=== PATIENT | female | born 1970 | race Caucasian/White ===

== ENCOUNTER 2023-04-29 07:03 | Outpatient (OUT) | payer BC, SELFPAY ==
--- NOTE | 2023-04-29 10:04 | P.STRESS_ITS ---
Stress Test Stress Test Requesting physician: David Ibarra Procedure: Exercise stress test General Information: Reason for Stress Test: Chest pain Cardiac History and Risk Factors: No cardiac history, but does have lupus. Father had RI, sister has cardiomyopathy. Resting 12 - Lead Electrocardiogram: -Rhythm: Normal sinus -Rate:? 69 -[place]:?Normal -Q-waves: Non-pathologic -T-waves/ST segments: Inverted T waves in aVL Stress Test: Protocol: Royal Exercise Capacity: Excellent, exercised for 11 minutes, 45 seconds. Royal stage 4 = 4.2MPH, 16% grade, 13.4 METs Blood Pressure Response: Initial 140/84, max 168/90 Rhythm: Remained in sinus rhythm, max rate 157 = 94% max predicted. Occasional PVCs. ST - Response: No change from baseline. Patient Response: Asymptomatic Interpretation: Normal exercise stress test. Tellez Treadmill Score = 11.8 which is low risk. Clinical correlation required.
== END 2023-04-29 07:04 ==
PROVIDERS: PCP Family Medicine; Visit Provider Internal Medicine
DX: R07.89 Other chest pain (principal)
CPT/HCPCS: 93017

== ENCOUNTER 2024-07-19 10:36 | Outpatient (OUT) | payer BC, SELFPAY ==
[2024-07-19 11:18] LABS: Basophils Percent Auto 0.5 % (0.2-2.0); Eosinophils Percent Auto 0.9 % (0.9-7.0); Hematocrit 39.1 % (36.0-48.0); Hemoglobin 13.7 g/dL (12.0-16.0); Immature Granulocytes Abs Auto 0.01 10^3/uL (0.00-0.03); Immature Granulocytes Pct Auto 0.2 % (0.0-0.5); Lymphocytes Absolute Auto 1.3 10^3/uL (1.2-3.8); Lymphocytes Percent Auto 29.9 % (20.5-60.0); Mean Corpuscular Hemoglobin 29.5 pg (26.7-34.0); Mean Corpuscular Volume 84.1 fL (81.0-99.0); Monocytes Absolute Auto 0.4 10^3/uL (0.3-0.8); Monocytes Percent Auto 10.4 % (1.7-12.0); Neutrophils Absolute Auto 2.5 10^3/uL (1.4-6.5); Neutrophils Percent Auto 58.1 % (43.0-75.0); Platelet Count 222 10^3/uL (150-450); Red Blood Count 4.65 10^6/uL (4.20-5.40); White Blood Count 4.3 10^3/uL (4.0-11.0)
[2024-07-19 11:39] LABS: Estimated Average Glucose 97 mg/dL
[2024-07-19 11:54] LABS: Alanine Aminotransferase 29 U/L (14-59); Albumin Globulin Ratio 1.1; Albumin Level 4.1 g/dL (3.4-5.0); Alkaline Phosphatase 84 U/L (46-116); Aspartate Amino Transferase 18 U/L (15-37); BUN Creatinine Ratio 15.4; Bilirubin Total 0.5 mg/dL (0.2-1.0); Calcium 9.3 mg/dL (8.5-10.1); Carbon Dioxide 30.9 mmol/L (21.0-32.0); Chloride 100 mmol/L (98-107); Chol HDL Ratio 2.7; Cholesterol 193 mg/dL (<=200); Estimated GFR (African America >60 (>=60); Estimated GFR (Non-African Ame >60 (>=60); Free T3 2.64 pg/mL (2.18-3.98); Globulin 3.9 g/dL; Glucose 105 mg/dL (74-106); HDL Cholesterol 72 mg/dL (40-60); Potassium 3.9 mmol/L (3.5-5.1); Sodium 135 mmol/L (136-145); Thyroid Stimulating Hormone 0.554 uIU/mL (0.358-3.740); Triglycerides 54 mg/dL (<=150); VLDL CHOLESTEROL 10.8 mg/dL
== END 2024-07-19 10:37 | disposition home or self-care (01) ==
PROVIDERS: PCP Family Medicine; Visit Provider Family Medicine
DX: R00.0 Tachycardia, unspecified (principal); R25.1 Tremor, unspecified
CPT/HCPCS: 36415; 80053; 80061; 83036; 83540; 84436; 84443; 84481; 85025; 93246

== ENCOUNTER 2024-07-26 13:01 | Outpatient (OUT) | payer BC, SELFPAY ==
--- NOTE | 2024-07-26 13:00 | ECG_ITS ---
[facility] Test Date: 2024-07-26 Pat Name: Nneka Jade Department: Room: - Gender: Female [employer]er: : 1970 Requested By: KAVIN WAGNER Order Number: [id number] Reading MD: GEORGETTE MORALES Measurements Intervals [place] Rate: 76 P: 60 IA: 149 QRS: 85 QRSD: 85 T: 63 QT: 372 QTc: 419 Interpretive Statements SINUS RHYTHM Compared to ECG 07/06/2019 05:17:38 No significant changes Electronically Signed On 07-27-2024 22:29:35 EDT by GEORGETTE MORALES
[2024-07-26 18:37] LABS: Internal Control Within Normal Limits; Occult Blood Positive
== END 2024-07-26 13:02 | disposition home or self-care (01) ==
LOC: CARD 13:01
PROVIDERS: PCP Family Medicine; Visit Provider Family Medicine
DX: R00.0 Tachycardia, unspecified (principal)
CPT/HCPCS: 93005; G0328

== ENCOUNTER 2024-08-24 10:09 | Outpatient (OUT) | payer BC, SELFPAY ==
--- NOTE | 2024-08-24 10:12 | CA_ITS ---
Patient Name: TYREE ARRIAGA MR#: [id number] : 1970 Exam Date: 08/24/2024 Ordering Doctor: DR KAVIN WAGNER . ECHOCARDIOGRAM REPORT PROCEDURE: CA ECHO DOPPLER COMPLETE INDICATIONS: Tachycardia COMPARISON: None. DESCRIPTION: COMPLETE ECHOCARDIOGRAM Real-time transthoracic echocardiography with 2D, M-mode, spectral and color flow Doppler performed. QUALITY: Technical quality was good. LEFT VENTRICLE: Normal chamber size. Normal left ventricular wall thickness. Global left ventricular systolic function is normal. Visual estimation of left ventricular ejection fraction is 65%. No regional wall motion abnormalities LV EF: DIASTOLIC: Normal diastolic function. ATRIAL SEPTUM: LEFT ATRIUM: Normal chamber size. RIGHT ATRIUM: Normal chamber size. RIGHT VENTRICLE: Normal chamber size. Normal right ventricular systolic function. TRICUSPID VALVE: Normal mobility and thickness. Normal with trivial regurgitation. No evidence of pulmonary hypertension.RVSP 23mmHg MITRAL VALVE: Normal mobility and thickness. No evidence of mitral valve stenosis. There is no mitral annular calcification. No pericardial effusion mitral regurgitation. AORTIC VALVE: Normal trileaflet appearance. No visible sclerosis. Normal leaflet mobility. No evidence of aortic valve stenosis. No aortic regurgitation. AORTIC ROOT: Normal diameter and appearance. PULMONIC VALVE: Normal thickness and mobility. No stenosis. Trivial regurgitation. PERICARDIUM: No pericardial effusion. IVC: Collapes with inspirations. Normal size PLEURA: CONCLUSION: Normal left and systolic function without wall motion abnormalities, ejection fraction 65% Normal left ventricular diastolic function Normal right ventricle size and systolic function Normal pulmonary arterial pressure Trivial tricuspid regurgitation and trivial pulmonic regurgitation No significant valvular abnormalities Adult Echocardiography Procedure Report Left Ventricle LVEDD (3.7 - 5.6 cm): 4.66 cm LVESD (2.2 - 4.0 cm): 2.96 cm LVIVS thickness (0.6 - 1.2 cm): 0.64 cm LVPW thickness (0.5 - 1.0 cm): 0.97 cm e': 0.11 m/s E - e': 6.94 LVOT Max Gradient: 4.58 mm[Hg] LVOT Area (cm2): 1.07 m/s Peak Velocity (LVOT): 1.07 m/s Mean Velocity (LVOT): 0.69 m/s LVOT Diameter 1.91 cm Left Ventricular Ejection Fraction: 70.22 % Left Atrium LA Volume Index (2D A2C): 29.86 ml/m2 Left Atrium Systolic Dimension: 3.23 cm Mitral Valve MV E to A Ratio: 1.13 MV Max Gradient: MV Mean Gradient: Mitral Valve A-Wave Peak Velocity: 0.70 m/s Mitral Valve E-Wave Peak Velocity: 0.79 m/s Cardiovascular Orifice Area: Right Ventricle RV Internal Diastolic Dimension: 2.99 cm Aorta AO Root Diam: 2.55 cm Ascending Ao Diam: 2.43 cm Aortic Valve AoV Area ([place]): 2.00 cm2, 2.00 cm2 AoV Area (VTI): 1.96 cm2, 1.[address] [place]: Pressure Half-Time: Peak Velocity(Antegrade Flow): 1.53 m/s Peak Gradient(Antegrade Flow): 9.37 mm[Hg] Mean Velocity(Antegrade Flow): 1.06 m/s Mean Gradient(Antegrade Flow): 5.14 mm[Hg] Velocity Time Integral: 31.77 cm Tricuspid Valve Peak Velocity (Regurgitant Flow): 2.04 m/s, 2.22 m/s, 2.42 m/s Peak Velocity: Pulmonic Valve Mean Gradient: 4.72 mm[Hg], 3.93 mm[Hg] Mean Velocity: 0.98 m/s, 0.90 m/s Peak Velocity: 1.46 m/s Peak Gradient: 9.30 mm[Hg], 7.89 mm[Hg] Right Atrium Right Atrium Systolic Pressure: 32.70 ml, 32.70 ml Dictated by: Faustina Mayorga MD on 08/24/2024 at 16:30 Approved by: Faustina Mayorga MD on 08/24/2024 at 16:39
--- OUTSIDE RECORDS SUMMARY | 2024-08-24 10:15 | XMS_ITS | CCD ---
Author Organization [facility] Inform ion Partnership [facility] Care Team Providers Care Senior Human Resources Representative Name Role Phone Kavin Ibarra Primary Care Provider CHELSEY ALEXITA Referring Unavailable KAVIN IBARRA Primary Care Unavailable KAVIN IBARRA Referring Unavailable KAVIN IBARRA Primary Care Unavailable CHELSEY ALEXITA Referring Unavailable KAVIN IBARRA Primary Care Unavailable CHELSEY ALEXITA Referring Unavailable KAVIN IBARRA Primary Care Unavailable Unavailable Primary Care Provider Unavailabl e JORDAN RICHARDSON Admitting Unavailable JORDAN RICHARDSON Consulting Unavailable JORDAN RICHARDSON Attending Unavailable DR KAVIN IBARRA Primary Care Unavailable CINTHIA JOAQUIN Consulting Unavailable Ramirez Levi Consulting Unavailable MD Kavin Ibarra Primary Care Provider [phone] DO Cuong Ireland Emergency Provider Kodi Hughes Attending Unavailable Cuong Ireland Admitting Unavailable Cuong Ireland Attending Unavailable Kavin Ibarra Primary Care Unavailable Medications Current Medications Medication Drug Class(es) Dates Sig (Normalized) Sig (Original) benzonatate 200 mg oral capsule (1 source) Non-narcotic Antitussive Start: 10-09-2022 take 200 mg by mouth three times daily Benzonatate Active 200 MG PO Three times daily October 09, 2022 12:00am oseltamivir 75 mg oral capsule (1 source) Neuraminidase Inhibitor Start: 10-09-2022 take 1 capsule by mouth every twelve hours Oseltamivir (Tamiflu) 75 mg capsule Active 75 MG PO Q12H 10 October 09, 2022 12:00am Problems Active Problems Problem Classification Problem Date Documented Da te Episodic/Chronic Influenza (1 source) Influenza due to Influenza A virus; Translations: [Influenza due to other identified influenza virus with other respiratory manifestations] 11-30-2022 Episodic Influenza (1 source) Influenza; Translations: [Influenza due to other identified influenza virus with other manifestations] Onset: 10-09-2022 Other aftercare (1 source) Other superintendent terminal (current) drug therapy; Translations: [OTH SKILLED NURSING CURRENT DRUG THERAPY] Onset: 10-08-2021 Episodic Other gastrointestinal disorders (1 source) Constipation, unspecified; Translations: [CONSTIPATION UNSPECIFIED] Onset: 10-08-2021 Episodic Other gastrointestinal disorders (1 source) Constipation; Translations: [Constipation, unspecified] 10-12-2021 Episodic Unclassified (3 sources) LOW BACK PAIN, UNSPECIFIED; Translations: [LOW BACK PAIN, UNSPECIFIED] Onset: 10-08-2021 Unclassified (1 source) Cough, unspecified; Translations: [Cough, unspecified] Onset: 10-09-2022 Past or Other Problems Problem Classification Problem Date Documented Da te Episodic/Chronic Unclassified (1 source) LOW BACK PAIN, UNSPECIFIED; Translations: [LOW BACK PAIN, UNSPECIFIED] Onset: 10-05-2021 Results Test Name Value Interpretation Reference Range Facility ED Note-Physicianon 07-20-20 24 ED Note-Physician ED Note-Physician Basic Information Time Seen: Orlando DUFF, Wiliam Alicea. 07/19/2024 18:38 Chief Complaint Pt presents to ED with complaints of right calf pain onset days ago and worsening today History of Present Illness 54yo female presents with a 4day hx of R. lower leg pain. The pt states the pain started Friday and has been worsening today. She states the pain is ascending and stops midway up the tibia. Pt states that she has been running around all weekend because of her son's wedding at their house. Pt states she was at her PCP today to get evaluated for dizziness, headaches and dyspnea on exertion. Her PCP gave her a Holter monitor to evaluate potential causes. She states that she does not remember any trauma to the location. Pt states when she is moving it is a stabbing pain but if she is laying still it is more of a throbbing. She states that she tried ibuprofen and Tylenol with no relief of pain. Pt denies ecchymosis and edema. Pt states she had cold sx 1 week ago which have resolved. Pt denies hx of blood clots and recent procedures. Review of Systems No other aggravating or relieving factors no other associated symptoms no other prior treatments or complaints. Family: Reviewed and noncontributory Social: lives at home Review of systems negative unless otherwise specified in the HPI. Physical Exam Vitals & Measurements T: 36.9 ?C(Oral) HR: 104(Peripheral) RR: 18 BP: 144/90 SpO2: 98% HT: 157 cm WT: 58 kg BMI: 23.53 General: alert Skin: warm, dry Head: no trauma Neck: Trachea midline Eye: normal conjunctiva, sclera clear ENMT: TM's clear, oral mucosa moist Cardiovascular: regular rate and rhythm Respiratory: Lungs CTA, respirations non labored Chest wall: no deformity. Gastrointestinal: soft, non distended Back: No tenderness, Normal ROM Extremities: no deformity, no trauma, TTP to medial/lateral aspect of the right tibia, distal pulses present Neurological: LOC appropriate for age, speech normal Psychiatric: cooperative, affect appropriate for age, normal judgement Medical Decision Making MEDICAL DECISION MAKING Number and Complexity of Problems Differential Diagnosis: [] [facility] Data External documents reviewed: [] My EKG interpretation: [] My CT interpretation: [] My X-ray interpretation: [] My Ultrasound interpretation: reviewed Decision rules/scores evaluated: [] Discussed with: [] Treatment and Disposition ED Course: 54-year-old female reports emerged part with chief complaint of pain in her right lower leg. Possibly primary care doctor for concerns of possible blood clot. Exam is relatively benign. Mild tenderness along the right leg along the medial lateral aspect. Due to your concerns, we did do an ultrasound. Ultrasound negative for any signs of DVT. Discussed likely more muscular strain. She was understanding. Continue to rest, ice, compress, and elevate your affected joint to relieve inflammation and swelling. You may also take ibuprofen and Tylenol to help with pain. Follow-up with your primary care provider in 3 to 5 days. If symptoms worsen, do not improve, or new symptoms arise please report back to emergency department for further evaluation. The patient was understanding and agreeable to plan moving forward. Wiliam Rock PA-C had a [id number] interaction with the patient. I personally performed a physical exam and medical decision making. I have verified the documentation by the student as accurately representing the information obtained. Shared decision making: [] Code status: [] Assessment/Plan Pain in right lower leg (M79.661: Pain in right lower leg) Orders: naproxen, 500 mg = 1 tab(s), Oral, BID, PRN Pain, with food, # 20 tab(s), Refills(s) 0, Pharmacy: [facility]/pharm[facility] #[id number], 157, cm, 07/19/24 17:31:00 EDT, Height/Length Dosing, 58, kg, 07/19/24 17:31:00 EDT, Weight Dosing US Lower Extremity Venous Duplex Right Disposition Plan Patient Discharge Condition Stable Discharge Disposition to home Discharge Prescription List Prescriptions naproxen 500 mg Tab, 500 mg= 1 tab(s), Oral, BID, PRN Follow-up With When Contact Information Kavin Ibarra In 3 days 07/22/[address]T [address] Business (1) Additional Instructions: Call Dr for diagnosis based follow up Patient Education RICE Therapy for Routine Care of Injuries, [id number] Musculoskeletal Pain Attestation Patient seen and evaluated by the physician executive assistant. Attending physician was present in the emergency department and supervised care. This visit was performed by both the physician and an APC. I performed all aspects of the MDM as documented. This report was transcribed using voice recognition software. Every effort was made to ensure accuracy, however, inadvertently computerized web support engineer mistakes may be present. Appropriate healthcare PPE was used in evaluating this patient. The patient was p (more content not included)... Normal [facility] Comment on above: Result Comment: Elec tronically Signed By: Kodi Hughes DO\.br\Date and Time Signed: 07/20/24 07:04 EDT\.br\Electronically Co-Signed By: Wiliam Perry PA-C.br\Date and Time Co-Signed: 07/19/24 21:43 EDT US Lower Extremity Venous Du plex Righton 07-20-2024 US Lower Extremity Venous Duplex Right Exam Date/Time: 07/19/2024 19:54 EDT Reason for Exam: Pain Report IMPRESSION: NO EVIDENCE OF VENOUS THROMBOSIS INVOLVING VISUALIZED DEEP VEINS OF THE RIGHT LEG. CLINICAL HISTORY: Pain COMMENT: On the right, the greater saphenous vein, common femoral vein, deep femoral vein, femoral vein, and popliteal vein demonstrate spontaneous phasic venous flow, with augmentation, competence, non-pulsatility, and compressibility every 2 cm. The right posterior tibial and peroneal veins of the deep venous system compress. The contralateral left common femoral vein demonstrates spontaneous phasic venous flow. Ordering Provider: Wiliam Perry FINAL REPORT Dictated: 07/20/2024 8:29 am Jefferson Cage MD Signed (Electronic Signature): 07/20/2024 8:29 am Signed by: Jefferson Cage MD Transcribed by: MICKIE Technologist: MAY Morgan [facility] ED Clinical Summaryon 2023 ED Clinical Summary ED Clinical Summary [place] [id number] ED Clinical Summary Person Information Name: NNEKA ARRIAGA [facility] Age: 54 Years : 1970 Sex: Female Language: Bulgarian PCP: Kavin Ibarra MD Marital Status: Phone: [phone] Visit Id: Visit Reason: Lower leg pain-swelling; RIGHT LEG PAIN Speciality: Acuity: 4 Enc Type: Emergency Med Service: Emergency Arrival: 07/19/2024 17:26:05 Discharge: 07/19/2024 20:06:19 LOS: 000 02:40 Checkin: 07/19/2024 17:26:05 Checkout: 07/19/2024 20:06:19 Dispo Type: Home (Routine DC) EVENTS: Event Name Event Status Request Date/Time Start Date/Time Complete Date/Time Arrive Complete 07/19/2024 17:26:05 07/19/2024 17:26:05 07/19/2024 17:26:05 Document Home Meds Request 07/19/2024 17:26:05 Triage Complete 07/19/2024 17:26:05 07/19/2024 17:31:55 07/19/2024 17:31:55 Registration Complete 07/19/2024 17:29:19 07/19/2024 17:29:19 07/19/2024 17:29:19 Reg Complete Request 07/19/2024 17:29:19 Reg Bed Request Complete 07/19/2024 17:29:19 07/19/2024 17:29:19 07/19/2024 17:29:19 Bed Assign Complete 07/19/2024 18:33:03 07/19/2024 18:33:03 07/19/2024 18:33:03 Dr Exam Complete 07/19/2024 18:33:03 07/19/2024 18:36:05 07/19/2024 18:36:05 RN Exam Complete 07/19/2024 18:33:03 07/19/2024 18:57:51 07/19/2024 18:57:51 Registration Request 07/19/2024 18:36:05 Dr Exam Complete 07/19/2024 18:38:52 07/19/2024 18:38:52 07/19/2024 18:38:52 Dr Exam Complete 07/19/2024 18:39:18 07/19/2024 18:39:18 07/19/2024 18:39:18 Dr Exam Complete 07/19/2024 18:41:45 07/19/2024 18:41:45 07/19/2024 18:41:45 US Complete 07/19/2024 19:02:53 07/19/2024 19:33:14 07/19/2024 19:54:33 Discharge Complete 07/19/2024 20:01:50 07/19/2024 20:06:26 07/19/2024 20:06:26 Transfer Complete 07/19/2024 20:06:26 07/19/2024 20:06:26 07/19/2024 20:06:26 ADDRESS: [address] [facility] [id number] [facility] DOC NOTES: MEDICAL INFORMATION: Prescriptions Given: New Medications [id number], [address], [place] [id number], [phone] naproxen (naproxen 500 mg Tab) 1 Tablets By Mouth 2 times a day as needed Pain. with food. Refills: 0. Medications to Continue with No Changes Other Medications ascorbic acid (Vitamin C) every day. ergocalciferol (Vitamin D) By Mouth every week. PATIENT EDUCATION INFORMATION: Instructions: RICE Therapy for Routine Care of Injuries, [id number]; Musculoskeletal Pain Follow up: With: Address: When: Kavin Ibarra [address] [place] [address] [phone] [place] (1) In 3 days 07/22/2024 Comments: Call Dr for diagnosis based follow up DIAGNOSIS: Pain in right lower leg Normal [facility] ED Patient Summaryon 024 ED Patient Summary ED Patient Summary [address] [address] Patient Discharge Instructions Person Information Name: NNEKA ARRIAGA Age: 54 Years Arrival Date: 07/19/2024 17:26:05 Discharge Diagnosis: Pain in right lower leg Primary Care Physician: Kavin Ibarra MD Provider Information Primary Provider: Kodi Hughes DO Advanced Oil Field Operator:None The exam and treatment you received in the Emergency Department were for an urgent problem and are not intended as complete care. It is important that you follow up with a doctor, nurse practitioner, or physician?s executive assistant for ongoing care. If your symptoms become worse or you do not improve as expected and you are unable to reach your usual health care provider, you should return to the Emergency Department. We are available 24 hours a day. NNEKA ARRIAGA has been given the following list of patient education materials, prescriptions and follow-up instructions: Follow-up Instructions: With: Address: When: Kavin Ibarra [address] [place] [address] [phone] [place] (1) In 3 days 07/22/2024 Comments: Call Dr for diagnosis based follow up In the event that this physician does not participate in your insurance network, please consult with your insurance company to find a nearby participating provider. Patient Education Materials: RICE Therapy for Routine Care of Injuries, Qhug-as-Dmci; Musculoskeletal Pain A MESSAGE TO ALL PATIENTS REGARDING OPIOIDS PRESCRIPTION OPIOIDS: WHAT YOU NEED TO KNOW Prescription opioids can be used to help relieve wmzgttlf-mj-flhzit pain and are often prescribed following a surgery or injury, or for certain health conditions. These medications can be an important part of the treatment but also come with serious risks. It is important to work with your healthcare provider to make sure you are getting the safest, most effective care. WHAT ARE THE RISKS AND SIDE EFFECTS OF OPIOID USE? Prescription opioids carry serious risks of addiction and overdose, especially with prolonged use. An opioid overdose, often marked by slowed breathing, can cause sudden . The use of prescription opioids can have a number of side effects as well, even when taken as directed: ? Tolerance?meaning you might need to take more of the medication for the same pain relief ? Physical dependence?meaning you have symptoms of withdrawal when a medication is stopped ? Increased sensitivity to pain ? Constipation ? Nausea, vomiting, and dry mouth ? Sleepiness and dizziness ? Confusion ? Depression ? Low levels of testosterone that can result in lower sex drive, energy, and strength ? Itching and sweating RISKS ARE GREATER WITH: ? History of drug misuse, substance use disorder, or overdose ? Mental health conditions (such as depression or anxiety) ? Sleep apnea ? Older age (65 years and older) ? Avoid alcohol while taking prescription opioids. Also, unless specifically advised by your health care provider, medications to avoid include: ? Benzodiazepines (such as Xanax or Valium) ? Muscle relaxants (such as Soma or Flexeril) ? Hypnotics (such as Ambien or Lunesta) ? Other prescription opioids KNOW YOUR OPTIONS Talk to your health care provider about ways to manage your pain that don?t involve prescription opioids. Some of these options may actually work better and have fewer risks and side effects. Options may include: ? Pain relievers such as acetaminophen, ibuprofen, and naproxen ? Some medication that are also used for depression or seizures ? Physical therapy and exercise ? Cognitive behavioral therapy, a psychological, goal-directed approach, in which patients learn how to modify physical, behavioral, and emotional triggers of pain and stress. IF YOU ARE PRESCRIBED OPIOIDS FOR PAIN: ? Never take opioids in greater amounts or more often than prescribed. ? Follow up with your primary health care provider. o Work together to create a plan on how to manage your pain. o Talk about ways to help manage your pain that don?t involve prescription opioids. o Talk about any and all concerns and side effects. ? Help prevent misuse and abuse o Never sell or share prescription opioids. o Never use another person?s prescription opioids. ? Store prescription opioids in a secure place and out of reach of others (this may include visitors, children, friends, and family). ? Safely dispose of unused prescription opioids: Find your community drug take-back program or your pharmacy mail-back program, or flush them down the toilet, following guidance from the Food and Drug Administration (www.fda.gov/Drugs/Re sourcesForYou). ? Visit www.cdc.gov/drugoverd ose to learn about the risks of opioids abuse and overdose. ? If you believe you may be struggling with addiction, tell your hea (more content not included)... Normal [facility] Automated epithelial cells c ount in urine sediment (number/area)Ordered By: Cuong Ireland on 10-09-2022 Epithelial cells Auto (Urine sed) [#/Area] 3-4 [HPF] 0-2 [facility] Automated erythrocytes count in urine sediment (number/area)Ordered By: Cuong Ireland on 10-09-2022 RBC Auto (Urine sed) [#/Area] None seen [HPF] 0-4 [facility] Automated leukocytes count i n urine sediment (number/area)Ordered By: Cuong Ireland on 10-09-2022 WBC Auto (Urine sed) [#/Area] None seen [HPF] 0-4 [facility] Automated urine hyaline cast s count (number/volume)Ordered By: Cuong Ireland on 10-09-2022 Hyaline casts Auto (U) [#/Vol] None seen [LPF] 0-1 [facility] Basophils Auto (Bld) [#/Vol] Ordered By: Cuong Ireland on 10-09-2022 Basophils (Bld) [#/Vol] 0.1 10*3/uL 0.0-0.2 [facility] Basophils/100 WBC Auto (Bld) Ordered By: Cuong Ireland on 10-09-2022 Basophils/100 WBC (Bld) 0.4 % . [facility] Bilirubin Test strip Ql (U)O rdered By: Cuong Ireland on 10-09-2022 Bilirubin Ql (U) Negative Negative [facility] Body fluid albumin measureme nt (mass/volume)Ordered By: Cuong Ireland on 10-09-2022 Albumin (Body fld) [Mass/Vol] 4.0 g/dL 3.2-5.5 [facility] COVID CepheidOrdered By: Pratik spring Shu on 10-09-2022 SARS-CoV-2 (COVID-19) Ab IA Ql Negative Negative [facility] Comment on above: This is a duplicate Cepheid Xpert Xpress CoV-2/Flu/RSV Plus RNA by RT-PCR result to be used for statistical tracking purpose only. SARS-CoV-2 (COVID-19) RNA GEORGIANA+probe Ql (Unsp spec) [facility] Color Auto (U)Ordered By: Jacky lucianamarleni Ireland on 10-09-2022 Color (U) Yellow Yellow [facility] Creatinine and Glomerular fi ltration rate.predicted panel (S/P/Bld)Ordered By: Cuong Ireland on 10-09-2022 Creatinine [Mass/Vol] 0.88 mg/dL 0.44-1.03 [facility] Eosinophils Auto (Bld) [#/Vo l]Ordered By: Cuong Ireland on 10-09-2022 Eosinophils (Bld) [#/Vol] 0.0 10*3/uL 0.0-0.45 [facility] Eosinophils/100 WBC Auto (Bl d)Ordered By: Cuong Ireland on 10-09-2022 Eosinophils/100 WBC (Bld) 0.0 % . [facility] Erythrocyte distribution wid th Auto (RBC) [Ratio]Ordered By: Cuong Ireland on 10-09-2022 Erythrocyte distribution width (RBC) [Ratio] 12.6 % 11.9-15.3 [facility] Estimated glomerular filtrat ion rate (GFR) non- AmericanOrdered By: Cuong Ireland on 10-09-2022 GFR/1.73 sq M.predicted among non-blacks MDRD (S/P/Bld) [Vol rate/Area] > 60 mL/Min [facility] Globulin Calc (S) [Mass/Vol] Ordered By: Cuong Ireland on 10-09-2022 Globulin (S) [Mass/Vol] 3.6 g/dL [facility] HCG ( test) IA.rapi d Ql (U)Ordered By: Cuong Ireland on 10-09-2022 HCG ( test) Ql (U) Negative [facility] Hematocrit Auto (Bld) [Volum e fraction]Ordered By: Cuong Ireland on 10-09-2022 Hematocrit (Bld) [Volume fraction] 38.7 % 34.0-46.4 [facility] Hemoglobin [Mass/volume] in BloodOrdered By: Cuong Ireland on 10-09-2022 Hemoglobin (Bld) [Mass/Vol] 13.3 g/dL 11.8-15.4 [facility] Ketones Auto test strip (U) [Mass/Vol]Ordered By: Cuong Ireland on 10-09-2022 Ketones (U) [Mass/Vol] Negative Negative [facility] Leukocytes [#/volume] correc regan for nucleated erythrocytes in Blood by Automated counOrdered By: Cuong Ireland on 10-09-2022 WBC corrected for nucl RBC Auto (Bld) [#/Vol] 11.7 10*3/uL 3.8-11.6 [facility] Lymphocytes Auto (Bld) [#/Vo l]Ordered By: Cuong Ireland on 10-09-2022 Lymphocytes (Bld) [#/Vol] 0.8 10*3/uL 1.00-4.8 [facility] Lymphocytes/100 WBC Auto (Bl d)Ordered By: Cuong Ireland on 10-09-2022 Lymphocytes/100 WBC (Bld) 7.0 % . [facility] MCH Auto (RBC) [Entitic mass ]Ordered By: Cuong Ireland on 10-09-2022 MCH (RBC) [Entitic mass] 28.7 pg 24.7-34.3 [facility] MCHC Auto (RBC) [Mass/Vol]Or dered By: Cuong Ireland on 10-09-2022 MCHC (RBC) [Mass/Vol] 34.3 g/dL 32.0-35.0 [facility] MCV Auto (RBC) [Entitic vol] Ordered By: Cuong Ireland on 10-09-2022 MCV (RBC) [Entitic vol] 83.7 fL 80-100 [facility] Monocyte distribution width [Entitic volume] in Blood by AutomatedOrdered By: Cuong Ireland on 10-09-2022 Monocyte distribution width Auto (Bld) [Entitic vol] 23.80 % 0.00-20.00 [facility] Comment on above: For adults in ED, MD W > 20.0 may be associated with a higher risk of sepsis during the first 12 hrs of hospital admission Monocytes Auto (Bld) [#/Vol] Ordered By: Cuong Ireland on 10-09-2022 Monocytes (Bld) [#/Vol] 1.5 10*3/uL 0.0-0.8 [facility] Monocytes/100 WBC Auto (Bld) Ordered By: Cuong Ireland on 10-09-2022 Monocytes/100 WBC (Bld) 13.0 % . [facility] Neutrophils Auto (Bld) [#/Vo l]Ordered By: Cuong Ireland on 10-09-2022 Neutrophils (Bld) [#/Vol] 9.3 10*3/uL 1.8-7.7 [facility] Neutrophils/100 WBC Auto (Bl d)Ordered By: Cuong Ireland on 10-09-2022 Neutrophils/100 WBC (Bld) 79.6 % . [facility] Nitrite Test strip Ql (U)Ord ered By: Cuong Ireland on 10-09-2022 Nitrite Ql (U) Negative Negative [facility] No Panel InformationOrdered By: Cuong Ireland on 10-09-2022 D-Dimer Quantitative (PE/DVT) < 200 ng/mL 0-243 [facility] Comment on above: The reference range for D-dimer is <243 ng/mL D-dimer units.D-dimer results must be used in conjunction with a clinicalpretest probability (PTP) assessment model for deep veinthrombosis (DVT) and pulmonary embolism (PE). Results <230ng/mL d-dimer units can be used as a negative predictor inpatients with low or moderate probability for DVT/PE.Results above the exclusion threshold of 230 ng/ml D-dimerunits for DVT/PE may indicate the need for furtherdiagnostic testing.D-Dimer can be increased in hospitalized patients due toco-morbid conditions. Estimated GFR () > 60 mL/Min [facility] Comment on above: GFR estimated refere nce range: According to KDOQI guidelines, <60 ml/min/1.73m2 is sufficient to diagnose a patient with chronic kidney disease. Pharmacy Creatinine Clearance (Chem 63.20 [facility] Nucleated erythrocytes [Pres ence] in Blood by Automated countOrdered By: Cuong Ireland on 10-09-2022 Nucleated RBC Auto Ql (Bld) 0.1 /100{WBC} 0-0.5 [facility] Platelet mean volume Auto (B ld) [Entitic vol]Ordered By: Cuong Ireland on 10-09-2022 Platelet mean volume (Bld) [Entitic vol] 7.6 fL 6.3-10.7 [facility] Platelets Auto (Bld) [#/Vol] Ordered By: Cuong Ireland on 10-09-2022 Platelets (Bld) [#/Vol] 178 10*3/uL 150-450 [facility] Protein Auto test strip (U) [Mass/Vol]Ordered By: Cuong Ireland on 10-09-2022 Protein (U) [Mass/Vol] Negative Negative [facility] Protein [Mass/volume] in Ser um or PlasmaOrdered By: Cuong Ireland on 10-09-2022 Protein [Mass/Vol] 7.6 g/dL 6.1-7.9 [facility] RBC Auto (Bld) [#/Vol]Ordere d By: Cuong Ireland on 10-09-2022 RBC (Bld) [#/Vol] 4.63 10*6/uL 3.60-5.00 [facility] Serum or plasma alanine oshea otransferase measurement without P-5'-P (enzymatic activiOrdered By: Cuong Ireland on 10-09-2022 ALT No additional P-5'-P [Catalytic activity/Vol] 18 U/L 10-60 [facility] Serum or plasma albumin/glob ulin mass ratioOrdered By: Cuong Ireland on 10-09-2022 Albumin/Globulin [Mass ratio] 1.1 {ratio} [facility] Serum or plasma alkaline emily sphatase measurement (enzymatic activity/volume)Ordered By: Cuong Ireland on 10-09-2022 ALP [Catalytic activity/Vol] 67 U/L 32-92 [facility] Serum or plasma anion gap de terminationOrdered By: Cuong Ireland on 10-09-2022 Anion gap [Moles/Vol] 11.3 mmol/L 6.0-15.0 [facility] Serum or plasma aspartate am inotransferase measurement (enzymatic activity/volume)Ordered By: Cuong Ireland on 10-09-2022 AST [Catalytic activity/Vol] 24 U/L 10-42 [facility] Serum or plasma calcium sneha urement (mass/volume)Ordered By: Cuong Ireland on 10-09-2022 Calcium [Mass/Vol] 9.0 mg/dL 8.2-10.2 [facility] Serum or plasma chloride chin surement (moles/volume)Ordered By: Cuong Ireland on 10-09-2022 Chloride [Moles/Vol] 95 mmol/L 95-114 [facility] Serum or plasma glucose sneha urement (mass/volume)Ordered By: Cuong Ireland on 10-09-2022 Glucose [Mass/Vol] 129 mg/dL 70-100 [facility] Comment on above: ADA recommended refe rence rangeRandom Glucose Reference Range is dependent on time and content of last meal. Glucose of more than 200 mg/dL in a nonstressed, ambulatory subject supports the diagnosis of Diabetes Mellitus. Serum or plasma potassium me asurement (moles/volume)Ordered By: Cuong Ireland on 10-09-2022 Potassium [Moles/Vol] 3.4 mmol/L 3.5-5.1 [facility] Serum or plasma sodium measu rement (moles/volume)Ordered By: Cuong Ireland on 10-09-2022 Sodium [Moles/Vol] 132 mmol/L 136-146 [facility] Serum or plasma total biliru bin measurement (mass/volume)Ordered By: Cuong Ireland on 10-09-2022 Bilirubin [Mass/Vol] 0.7 mg/dL 0.3-1.2 [facility] Serum or plasma total carbon dioxide measurement (moles/volume)Ordered By: Cuong Ireland on 10-09-2022 CO2 [Moles/Vol] 29.1 mmol/L 22.0-30.0 [facility] Serum or plasma urea nitroge n measurement (mass/volume)Ordered By: Cuong Ireland on 10-09-2022 Urea nitrogen [Mass/Vol] 10 mg/dL 08-02 [facility] Specific gravity Auto test s trip (U) [Rel density]Ordered By: Cuong Ireland on 10-09-2022 Specific gravity (U) [Rel density] 1.003 1.001-1.030 [facility] Urine bacteria detection by automated methodOrdered By: Cuong Ireland on 10-09-2022 Bacteria Auto Ql (U) 4+ None Seen [facility] Urine clarity by refractomet ry automatedOrdered By: Cuong Ireland on 10-09-2022 Clarity Refractometry automated (U) Clear Clear [facility] Urine glucose measurement by automated test strip (mass/volume)Ordered By: Cuong Ireland on 10-09-2022 Glucose Auto test strip (U) [Mass/Vol] Normal mg/dL Normal [facility] Urine hemoglobin detection b y automated test stripOrdered By: Cuong Ireland on 10-09-2022 Hemoglobin Auto test strip Ql (U) Negative Negative [facility] Urine leukocyte esterase det ection by automated test stripOrdered By: Cuong Ireland on 10-09-2022 Leukocyte esterase Auto test strip Ql (U) 2+ Negative [facility] Urobilinogen Auto test strip (U) [Mass/Vol]Ordered By: Cuong Ireland on 10-09-2022 Urobilinogen (U) [Mass/Vol] Normal mg/dL Normal [facility] WBC Auto (Bld) [#/Vol]Ordere d By: Cuong Ireland on 10-09-2022 WBC (Bld) [#/Vol] 11.7 10*3/uL 3.8-11.6 [facility] pH Auto test strip (U)Ordere d By: Cuong Ireland on 10-09-2022 pH (U) 6.0 [pH] 5.0-9.[address] [facility] CT ABD/PELV W CONon 10-06-20 CT ABD/PELV W CON EXAMINATION: CT ABD/PELV W CON HISTORY: Right lower quadrant abdominal pain, low back pain COMPARISON: Pelvic x-ray 09/26/2020, CT abdomen pelvis 07/29/2019 TECHNIQUE: Multiple axial views CT abdomen pelvis after administration of 100 mL Omnipaque 300 IV contrast. Coronal and sagittal reformats. Dose reduction techniques were achieved by using automated exposure control and/or adjustment of mA and/or kV according to patient size and/or use of iterative reconstruction technique. FINDINGS: Visualized lung bases demonstrate mild bibasilar atelectasis. Cardiac apex unremarkable. Liver, gallbladder, spleen, pancreas, adrenal glands, and kidneys are unremarkable. Mild bilateral pelviectasis and mild fluid filled distention of the bilateral proximal ureters but without radiopaque stones. These findings are similar to CT 07/29/2019. Fluid filled urinary bladder without discrete wall thickening or radiopaque stones. Heterogeneous uterus. Prior appendix tip surgery but remaining appendiceal remnant is without wall thickening or surrounding fluid. Large amount stool throughout the large bowel to the rectum. No evidence for small bowel obstruction, large ascites, or free air. No acute bony abnormality. No vertebral body height loss, acute fracture line, or traumatic subluxation. No focal osseous erosion. No severe bony canal narrowing. IMPRESSION: Prior appendix tip surgery but remaining appendiceal remnant is without wall thickening or surrounding fluid. Mild bilateral pelviectasis and mild fluid filled distention of the bilateral proximal ureters but without radiopaque stones. These findings are similar to CT 07/29/2019. Electronically authenticated by: RAMIREZ LEVI Date: 2021-10-05 23:45 Normal [facility] XR LSPINE 2_3 VIEWSon 2020 XR LSPINE 2_3 VIEWS EXAMINATION: XR LSPINE 2_3 VIEWS, , 10/05/2021 9:22 PM EST INDICATION: Pain HISTORY: Ordering Provider Reason for Exam: Technologist Note: Additional: COMPARISON: None. TECHNIQUE: Lumbar spine x-ray: 3 view(s). FINDINGS: No acute fracture or traumatic malalignment. Normal lumbar lordosis. No listhesis. No abnormal curvature. Vertebral body heights are normal. Disc heights are maintained. Visualized soft tissues are unremarkable. Large bilateral stool is seen throughout the colon. IMPRESSION: No acute fracture or traumatic malalignment. Large volume of stool seen throughout the colon. Electronically authenticated by: CINTHIA JOAQUIN Date: 2021-10-05 22:56 Normal [facility] CBC AUTO DIFFon 10-05-2021 BASO # 0.0 103/ul Normal 0.0-0.1 [facility] Comment on above: Performed By: #### C BC #### [facility] [address] [place] [address] Dr. Mathew Ariza Basophils/100 WBC (Bld) 0.2 % Normal 0.2-2.0 [facility] Comment on above: Performed By: #### C BC #### [facility] [address] [place] [address] Dr. Mathew Ariza EO # 0.1 103/ul Normal 0.0-0.7 [facility] Comment on above: Performed By: #### C BC #### [facility] [address] [place] [address] Dr. Mathew Ariza Eosinophils/100 WBC (Bld) 0.9 % Normal 0.9-7.0 [facility] Comment on above: Performed By: #### C BC #### [facility] [address] [place] [address] Dr. Mathew Ariza Erythrocyte distribution width (RBC) [Ratio] 11.5 % Normal 11.0-15.0 [facility] Comment on above: Performed By: #### C BC #### [facility] [address] [place] [address] Dr. Mathew Ariza Hematocrit (Bld) [Volume fraction] 40.0 % Normal 36.0-48.0 [facility] Comment on above: Performed By: #### C BC #### [facility] [address] [place] [address] Dr. Mathew Ariza Hemoglobin (Bld) [Mass/Vol] 13.8 g/dL Normal 12.0-16.0 [facility] Comment on above: Performed By: #### C BC #### [facility] [address] [place] [address] Dr. Mathew Ariza IG # 0.02 10e3/ul Normal 0.00-0.03 [facility] Comment on above: Performed By: #### C BC #### [facility] [address] [place] [address] Dr. Mathew Ariza IG % 0.3 % Normal 0.0-0.5 [facility] Comment on above: Performed By: #### C BC #### [facility] [address] [place] [address] Dr. Mathew Ariza LYMPH # 1.3 103/ul Normal 1.2-3.8 [facility] Comment on above: Performed By: #### C BC #### [facility] [address] [place] [address] Dr. Mathew Ariza Lymphocytes/100 WBC (Bld) 22.8 % Normal 20.5-60.0 [facility] Comment on above: Performed By: #### C BC #### [facility] [address] [place] [address] Dr. Mathew Ariza MANUAL DIFF REQ NO Normal [facility] Comment on above: Performed By: #### C BC #### [facility] [address] [place] [address] Dr. Mathew Ariza MCH (RBC) [Entitic mass] 29.4 pg Normal 26.7-34.0 [facility] Comment on above: Performed By: #### C BC #### [facility] [address] [place] [address] Dr. Mathew Ariza MCHC (RBC) [Mass/Vol] 34.5 g/dL Normal 29.9-35.2 [facility] Comment on above: Performed By: #### C BC #### [facility] [address] [place] [address] Dr. Mathew Ariza MCV (RBC) [Entitic vol] 85.3 fL Normal 81.0-99.0 [facility] Comment on above: Performed By: #### C BC #### [facility] [address] [place] [address] Dr. Mathew Ariza MONO # 0.7 103/ul Normal 0.3-0.8 [facility] Comment on above: Performed By: #### C BC #### [facility] [address] [place] [address] Dr. Mathew Ariza Monocytes/100 WBC (Bld) 12.2 % Critically high 1.7-12. 0 [facility] Comment on above: Performed By: #### C BC #### [facility] [address] [place] [address] Dr. Mathew Ariza NEUT # 3.7 103/ul Normal 1.4-6.5 [facility] Comment on above: Performed By: #### C BC #### [facility] [address] [place] [address] Dr. Mathew Ariza Neutrophils/100 WBC (Bld) 63.6 % Normal 43.0-75.0 [facility] Comment on above: Performed By: #### C BC #### [facility] [address] [place] [address] Dr. Mathew Ariza Platelet mean volume (Bld) [Entitic vol] 9.4 fL Critically low 9.5-13.5 [facility] Comment on above: Performed By: #### C BC #### [facility] [address] [place] [address] Dr. Mathew Ariza PLT 212 103/ul Normal 150-450 [facility] Comment on above: Performed By: #### C BC #### [facility] [address] [place] [address] Dr. Mathew Ariza RBC 4.69 106/ul Normal 4.20-5.40 [facility] Comment on above: Performed By: #### C BC #### [facility] [address] [place] [address] Dr. Mathew Ariza WBC 5.8 103/ul Normal 4.0-11.0 [facility] Comment on above: Performed By: #### C BC #### [facility] [address] [place] [address] Dr. Mathew Ariza ER URINE PROFILEon 1 Bilirubin Ql (U) Negative Normal NEGATIVE [facility] Comment on above: Performed By: #### E RUR #### [facility] [address] [place] [address] Dr. Mathew Ariza Clarity (U) CLEAR Normal CLEAR [facility] Comment on above: Performed By: #### E RUR #### [facility] [address] [place] [address] Dr. Mathew Ariza Color (U) LT. YELLOW Normal YELLOW [facility] Comment on above: Performed By: #### E RUR #### [facility] [address] [place] [address] Dr. Mathew VAZQUEZ A micrscopic examination will be performed if indicated. Normal [facility] Comment on above: Performed By: #### E RUR #### [facility] [address] [place] [address] Dr. Mathew Ariza Glucose Ql (U) Negative Normal NEGATIVE [facility] Comment on above: Performed By: #### E RUR #### [facility] [address] [place] [address] Dr. Mathew Ariza Hemoglobin Ql (U) Negative Normal NEGATIVE [facility] Comment on above: Performed By: #### E RUR #### [facility] [address] [place] [address] Dr. Mathew Ariza Ketones Ql (U) Negative Normal NEGATIVE [facility] Comment on above: Performed By: #### E RUR #### [facility] [address] [place] [address] Dr. Mathew Ariza LEUKOCYTES Negative Normal NEGATIVE [facility] Comment on above: Performed By: #### E RUR #### [facility] [address] [place] [address] Dr. Mathew Ariza Nitrite Ql (U) Negative Normal NEGATIVE [facility] Comment on above: Performed By: #### E RUR #### [facility] [address] [place] [address] Dr. Mathew Ariza pH (U) 7.0 [pH] Normal 5-9 [facility] Comment on above: Performed By: #### E RUR #### [facility] [address] [place] [address] Dr. Matehw Ariza SPEC GRAVITY 1.025 Normal 1.005-<=1.02 5 [facility] Comment on above: Performed By: #### E RUR #### [facility] [address] [place] [address] Dr. Mathew Ariza UA PROTEIN Negative Normal NEGATIVE/ TRACE [facility] Comment on above: Performed By: #### E RUR #### [facility] [address] [place] [address] Dr. Mathew Ariza UR MICRO IND NOT INDICATED Normal [facility] Comment on above: Performed By: #### E RUR #### [facility] [address] [place] [address] Dr. Mathew Ariza Urobilinogen Qn (U) 0.2 {Josie'U}/dL Normal 0.2 - 1. 0 [facility] Comment on above: Performed By: #### E RUR #### [facility] [address] [place] [address] Dr. Mathew Ariza PROF CHEM 8 (BAS METB)on Anion gap [Moles/Vol] 11.5 mmol/L Normal [facility] Comment on above: Performed By: #### B MP #### [facility] [address] [place] [address] Dr. aMthew Ariza Calcium [Mass/Vol] 9.1 mg/dL Normal 8.4-10.2 [facility] Comment on above: Performed By: #### B MP #### [facility] [address] [place] [address] Dr. Mathew Ariza Chloride [Moles/Vol] 101 mmol/L Normal 98-107 [facility] Comment on above: Performed By: #### B MP #### [facility] [address] [place] [address] Dr. Mathew Ariza CO2 [Moles/Vol] 30.2 mmol/L Critically high 22.0-30.0 [facility] Comment on above: Performed By: #### B MP #### [facility] [address] [place] [address] Dr. Mathew Ariza Creatinine [Mass/Vol] 0.96 mg/dL Normal 0.52-1.04 [facility] Comment on above: Performed By: #### B MP #### [facility] [address] [address] [address] Mathew Ariza EGFR-AF MARSHALLESE >60 Normal >=60 [facility] Comment on above: Performed By: #### B MP #### [facility] [address] [address] [address] Mathew Ariza EGFR-NON AF MARSHALLESE >60 Normal >=60 [facility] Comment on above: Performed By: #### B MP #### [facility] [address] [address] [address] Mathew Ariza Glucose [Mass/Vol] 103 mg/dL Normal 74-106 [facility] Comment on above: Performed By: #### B MP #### [facility] [address] [address] [address] Mathew Ariza Potassium [Moles/Vol] 3.7 mmol/L Normal 3.4-5.0 [facility] Comment on above: Performed By: #### B MP #### [facility] [address] [address] [address] Mathew Ariza Sodium [Moles/Vol] 139 mmol/L Normal 137-145 [facility] Comment on above: Performed By: #### B MP #### [facility] [address] [address] [address] Mathew Ariza Urea nitrogen [Mass/Vol] 20.0 mg/dL Critically high 7.0-17 .0 [facility] Comment on above: Performed By: #### B MP #### [facility] [address] [address] [address] Mathew Ariza Urea nitrogen/Creatinine [Mass ratio] 20.8 mg/mg Normal [facility] Comment on above: Performed By: #### B MP #### [facility] [address] [address] [address] Mathew Ariza Basic Metabolic Panelon 07-12 Anion gap [Moles/Vol] 11 mmol/L 9 - 17 mmol/L [place] Bun/Cre Ratio 34 High [place] Calcium [Mass/Vol] 10.1 mg/dL 8.6 - 10. 4 mg/dL [place] Chloride [Moles/Vol] 100 mmol/L 98 - 10 7 mmol/L [place] CO2 [Moles/Vol] 26 mmol/L 20 - 31 mmol/L [place] Creatinine [Mass/Vol] 0.5 mg/dL 0.5 - 0.9 mg/dL [place] GFR >60 >60 mL/min [place] GFR Non- >60 >60 mL/min [place] GFR/1.73 sq M predicted among non-blacks MDRD (S/P/Bld) [Vol rate/Area] NOT REPORTED [place] GFR/1.73 sq M predicted among non-blacks MDRD (S/P/Bld) [Vol rate/Area] [place] Comment on above: Average GFR for 50-5 9 years old: 93 mL/min/1.73sq m Chronic Kidney Disease: <60 mL/min/1.73sq m Kidney failure: <15 mL/min/1.73sq m eGFR calculated using average adult body mass. Additional eGFR calculator available at: http://www.[employer]am[employer]/multiple_crcl_2012.htm Glucose [Mass/Vol] 121 mg/dL High 70 - 99 mg/dL [place] Interpretation and review of laboratory results Abnormal [place] Potassium [Moles/Vol] 3.8 mmol/L 3.7 - 5.3 mmol/L [place] Sodium [Moles/Vol] 137 mmol/L 135 - 144 mmol/L [place] Urea nitrogen [Mass/Vol] 17 mg/dL 6 - 20 mg/d L [place] Basic Metabolic Profon 08-02 (cont.) Normal [facility] Comment on above: Result Comment: Aver age GFR for 50-59 years old: 93 mL/min/1.73sq m Chronic Kidney Disease: <60 mL/min/1.73sq m Kidney failure: <15 mL/min/1.73sq m eGFR calculated using average adult body mass. Additional eGFR calculator available at: http://www.globalrph.com/multiple_crcl_2012.htm Performed By: #### C DP, BMP, SED #### [facility] [address] [place], [place] [phone] Typing Bookkeeper: Jerry Willingham MD #### CRP #### [address] [phone] Typing Bookkeeper: Fabrice Barrett MD Anion gap [Moles/Vol] 11 mmol/L Normal 9-17 [facility] Comment on above: Performed By: #### C DP, BMP, SED #### [facility] [address] [place], [place] [phone] Typing Bookkeeper: Jerry Willingham MD #### CRP #### [address] [phone] Typing Bookkeeper: Fabrice Barrett MD BUN/CRE Ratio 34 High 9-20 [facility] Comment on above: Performed By: #### C DP, BMP, SED #### [facility] [address] [place], [place] [phone] Typing Bookkeeper: Jerry Willingham MD #### CRP #### [address] [address] Typing Bookkeeper: Fabrice Barrett MD Calcium [Mass/Vol] 10.1 mg/dL Normal 8.6-10.4 [facility] Comment on above: Performed By: #### C DP, BMP, SED #### [facility] [address] [place], [place] [phone] Typing Bookkeeper: Jerry Willingham MD #### CRP #### [address] [address] Typing Bookkeeper: Fabrice Barrett MD Chloride [Moles/Vol] 100 mmol/L Normal 98-107 [facility] Comment on above: Performed By: #### C DP, BMP, SED #### [facility] [address] [place] [address] Typing Bookkeeper: Jerry Willingham MD #### CRP #### [address] [phone] Typing Bookkeeper: Fabrice Barrett MD CO2 [Moles/Vol] 26 mmol/L Normal 20-31 [facility] Comment on above: Performed By: #### C DP, BMP, SED #### [facility] [address] [place], [place] [phone] Typing Bookkeeper: Jerry Willingham MD #### CRP #### [address] [phone] Typing Bookkeeper: Fabrice Barrett MD Creatinine [Mass/Vol] 0.50 mg/dL Normal 0.50-0.90 [facility] Comment on above: Performed By: #### C DP, BMP, SED #### [facility] [address] [place] [address] Typing Bookkeeper: Jerry Willingham MD #### CRP #### [address] [phone] Typing Bookkeeper: Fabrice Barrett MD GFR, Amer >60 Normal >60 [facility] Comment on above: Performed By: #### C DP, BMP, SED #### [facility] [address] [place] [address] Typing Bookkeeper: Jerry Willingham MD #### CRP #### [address] [address] Typing Bookkeeper: Fabrice Barrett MD GFR,non Amer >60 Normal >60 [facility] Comment on above: Performed By: #### C DP, BMP, SED #### [facility] [address] [place] [address] Typing Bookkeeper: Jerry Willingham MD #### CRP #### [address] [address] Typing Bookkeeper: Fabrice Barrett MD Glucose [Mass/Vol] 121 mg/dL High 70-99 [facility] Comment on above: Performed By: #### C DP, BMP, SED #### [facility] [address] [place] [address] Typing Bookkeeper: Jerry Willingham MD #### CRP #### [address] [address] Typing Bookkeeper: Fabrice Barrett MD Potassium [Moles/Vol] 3.8 mmol/L Normal 3.7-5.3 [facility] Comment on above: Performed By: #### C DP, BMP, SED #### [facility] [address] [place], [place] [phone] Typing Bookkeeper: Jerry Willingham MD #### CRP #### [address] [address] Typing Bookkeeper: Fbarice Barrett MD Sodium [Moles/Vol] 137 mmol/L Normal 135-144 [facility] Comment on above: Performed By: #### C DP, BMP, SED #### [facility] [address] [place] [address] Typing Bookkeeper: Jerry Willingham MD #### CRP #### [address] [address] Typing Bookkeeper: Fabrice Barrett MD Urea nitrogen [Mass/Vol] 17 mg/dL Normal 6-20 [facility] Comment on above: Performed By: #### C DP, BMP, SED #### [facility] [address] [place] [address] Typing Bookkeeper: Jerry Willingham MD #### CRP #### [address] [address] Typing Bookkeeper: Fabrice Barrett MD Staging: NOT REPORTED Normal [facility] Comment on above: Performed By: #### C DP, BMP, SED #### [facility] [address] [place] [address] Typing Bookkeeper: Jerry Willingham MD #### CRP #### [facility] [address] [place], [place] [phone] Typing Bookkeeper: Fabrice Barrett MD C-Reactive Proteinon 019 CRP [Mass/Vol] 0.6 mg/L Normal 0.0-5.0 [facility] Comment on above: Performed By: #### C DP, BMP, SED #### [facility] [address] [place] [address] Typing Bookkeeper: Jerry Willingham MD #### CRP #### [facility] [address] [place], [place] [phone] Typing Bookkeeper: Fabrice Barrett MD CRP [Mass/Vol] 0.6 mg/L 0 - 5 mg/L [place] CBC Auto Differentialon 07-12 Basophils (Bld) [#/Vol] 0.00 10*3/uL [place] Basophils/100 WBC (Bld) 1 % 0 - 2 % M [place] Differential Type YES [place] Eosinophils (Bld) [#/Vol] 0.20 10*3/uL [place] Eosinophils/100 WBC (Bld) 4 % 0 - 5 % [place] Erythrocyte distribution width (RBC) [Ratio] 12.9 % 12.1 - 15.2 % [place] Hematocrit (Bld) [Volume fraction] 37.5 % 36 - 46 % [place] Hemoglobin (Bld) [Mass/Vol] 12.9 g/dL 12 - 16 g/dL [place] Interpretation and review of laboratory results Abnormal [place] Lymphocytes (Bld) [#/Vol] 0.80 10*3/uL Low [place] Lymphocytes/100 WBC (Bld) 17 % 15 - 40 % [place] MCH (RBC) [Entitic mass] 29.5 pg 26 - 34 pg [place] MCHC (RBC) [Mass/Vol] 34.3 g/dL 31 - 37 g/dL M [place] MCV (RBC) [Entitic vol] 85.9 fL 80 - 100 fL [place] Monocytes (Bld) [#/Vol] 0.70 10*3/uL [place] Monocytes/100 WBC (Bld) 14 % High 4 - 8 % M [place] Platelet mean volume (Bld) [Entitic vol] NOT REPORTED 6 - 12 fL [place] Platelets (Bld) [#/Vol] NOT REPORTED [place] Platelets (Bld) [#/Vol] 187 10*3/uL [place] RBC (Bld) [#/Vol] 4.36 10*6/uL 4 - 5.2 m/uL [place] RBC morphology finding Nom (Bld) NOT REPORTED [place] Segmented neutrophils/100 WBC (Bld) 64 % 47 - 75 % [place] Segs Absolute 3.30 [place] WBC (Bld) [#/Vol] 5.1 10*3/uL [place] WBC (Bld) [#/Vol] NOT REPORTED per 100 WBC [place] WBC Morphology NOT REPORTED [place] CBC with Diffon 08-02-2019 Abs. Basophil 0.00 k/uL Normal 0.0-0.2 [facility] Comment on above: Performed By: #### C DP, BMP, SED #### [facility] [address] [place] [address] Typing Bookkeeper: Jerry Willingham MD #### CRP #### [facility] [employer] [address] [place] [address] Typing Bookkeeper: Fabrice Barrett MD Abs.Neutrophil (Seg) 3.30 k/uL Normal 2.5-7.0 [facility] Comment on above: Performed By: #### C DP, BMP, SED #### [facility] [address] [place], [place] [phone] Typing Bookkeeper: Jerry Willingham MD #### CRP #### [address] [phone] Typing Bookkeeper: Fabrice Barrett MD Auto Diff Performed YES Normal [facility] Comment on above: Performed By: #### C DP, BMP, SED #### [facility] [address] [place], [place] [phone] Typing Bookkeeper: Jerry Willingham MD #### CRP #### [address] [phone] Typing Bookkeeper: Fabrice Barrett MD Basophils/100 WBC (Bld) 1 % Normal 0-2 [facility] Comment on above: Performed By: #### C DP, BMP, SED #### [facility] [address] [place] [address] Typing Bookkeeper: Jerry Willingham MD #### CRP #### [address] [phone] Typing Bookkeeper: Fabrice Barrett MD Eosinophils (Bld) [#/Vol] 0.20 10*3/uL Normal 0.0-0.4 [facility] Comment on above: Performed By: #### C DP, BMP, SED #### [facility] [address] [place] [address] Typing Bookkeeper: Jerry Willingham MD #### CRP #### [address] [phone] Typing Bookkeeper: Fabrice Barrett MD Eosinophils/100 WBC (Bld) 4 % Normal 0-5 [facility] Comment on above: Performed By: #### C DP, BMP, SED #### [facility] [address] [place] [address] (710) Typing Bookkeeper: Jerry Willingham MD #### CRP #### [address] [address] Typing Bookkeeper: Fabrice Barrett MD Erythrocyte distribution width (RBC) [Ratio] 12.9 % Normal 12.1-15.2 [facility] Comment on above: Performed By: #### C DP, BMP, SED #### [facility] [address] [place] [address] ( Typing Bookkeeper: Jerry Willingham MD #### CRP #### [place] [phone] Typing Bookkeeper: Fabrice Barrett MD Hematocrit (Bld) [Volume fraction] 37.5 % Normal 36-46 [facility] Comment on above: Performed By: #### C DP, BMP, SED #### [facility] [address] [place] [phone] ( Typing Bookkeeper: Jerry Willingham MD #### CRP #### [place] [phone] Typing Bookkeeper: Fabrice Barrett MD Hemoglobin (Bld) [Mass/Vol] 12.9 g/dL Normal 12.0-16.0 [facility] Comment on above: Performed By: #### C DP, BMP, SED #### [facility] [address] [place] [address] ( Typing Bookkeeper: Jerry Willingham MD #### CRP #### [place] [phone] Typing Bookkeeper: Fabrice Barrett MD Lymphocytes (Bld) [#/Vol] 0.80 10*3/uL Low 1.0-4.8 [facility] Comment on above: Performed By: #### C DP, BMP, SED #### [facility] [address] [place] [phone] ( Typing Bookkeeper: Jerry Willingham MD #### CRP #### [address] [phone] Typing Bookkeeper: Fabrice Barrett MD Lymphocytes/100 WBC (Bld) 17 % Normal 15-40 [facility] Comment on above: Performed By: #### C DP, BMP, SED #### [facility] [address] [place] [address] Typing Bookkeeper: Jerry Willingham MD #### CRP #### [address] [phone] Typing Bookkeeper: Fabrice Barrett MD MCH (RBC) [Entitic mass] 29.5 pg Normal 26-34 [facility] Comment on above: Performed By: #### C DP, BMP, SED #### [facility] [address] [place] [address] Typing Bookkeeper: Jerry Willingham MD #### CRP #### [address] [phone] Typing Bookkeeper: Fabrice Barrett MD MCHC (RBC) [Mass/Vol] 34.3 g/dL Normal 31-37 [facility] Comment on above: Performed By: #### C DP, BMP, SED #### [facility] [address] [place] [phone] Typing Bookkeeper: Jerry Willingham MD #### CRP #### [address] [phone] Typing Bookkeeper: Fabrice Barrett MD MCV (RBC) [Entitic vol] 85.9 fL Normal 80-100 M [facility] Comment on above: Performed By: #### C DP, BMP, SED #### [facility] [address] [place], [place] [phone] Typing Bookkeeper: Jerry Willingham MD #### CRP #### [address] [phone] Typing Bookkeeper: Fabrice Barrett MD Monocytes (Bld) [#/Vol] 0.70 10*3/uL Normal 0.0-1.0 [facility] Comment on above: Performed By: #### C DP, BMP, SED #### [facility] [address] [place], [place] [phone] Typing Bookkeeper: Jerry Willingham MD #### CRP #### [address] [address] Typing Bookkeeper: Fabrice Barrett MD Monocytes/100 WBC (Bld) 14 % High 4-8 M [facility] Comment on above: Performed By: #### C DP, BMP, SED #### [facility] [address] [place] [address] Typing Bookkeeper: Jerry Willingham MD #### CRP #### [address] [address] Typing Bookkeeper: Fabrice Barrett MD Neutrophil (Seg) 64 % Normal 47-75 [facility] Comment on above: Performed By: #### C DP, BMP, SED #### [facility] [address] [place], [place] [phone] Typing Bookkeeper: Jerry Willingham MD #### CRP #### [address] [address] Typing Bookkeeper: Fabrice Barrett MD Platelets (Bld) [#/Vol] 187 10*3/uL Normal 140-450 [facility] Comment on above: Performed By: #### C DP, BMP, SED #### [facility] [address] [place] [address] Typing Bookkeeper: Jerry Willingham MD #### CRP #### [address] [address] Typing Bookkeeper: Fabrice Barrett MD RBC (Bld) [#/Vol] 4.36 10*6/uL Normal 4.0-5.2 [facility] Comment on above: Performed By: #### C DP, BMP, SED #### [facility] [address] [place] [address] Typing Bookkeeper: Jerry Willingham MD #### CRP #### [address] [address] Typing Bookkeeper: Fabrice Barrett MD WBC (Bld) [#/Vol] 5.1 10*3/uL Normal 3.5-11.0 [facility] Comment on above: Performed By: #### C DP, BMP, SED #### [facility] [address] [place] [address] Typing Bookkeeper: Jerry Willingham MD #### CRP #### [place] [address] Typing Bookkeeper: Fabrice Barrett MD Abs.Imm.Granulocyte NOT REPORTED Normal 0.00-0.30 [facility] Comment on above: Performed By: #### C DP, BMP, SED #### [facility] [address] [place] [address] Typing Bookkeeper: Jerry Willingham MD #### CRP #### [address] [address] Typing Bookkeeper: Fabrice Barrett MD Immature granulocytes (Bld) [#/Vol] NOT REPORTED Normal 0 [facility] Comment on above: Performed By: #### C DP, BMP, SED #### [facility] [address] [place] [address] Typing Bookkeeper: Jerry Willingham MD #### CRP #### [address] [address] Typing Bookkeeper: Fabrice Barrett MD NRBC Automated NOT REPORTED Normal [facility] Comment on above: Performed By: #### C DP, BMP, SED #### [facility] [address] [place], [place] [phone] Typing Bookkeeper: Jerry Willingham MD #### CRP #### [address] [address] Typing Bookkeeper: Fabrcie Barrett MD Platelet mean volume (Bld) [Entitic vol] NOT REPORTED Normal 6.0-12.0 [facility] Comment on above: Performed By: #### C DP, BMP, SED #### [facility] [address] [place], [place] [phone] Typing Bookkeeper: Jerry Willingham MD #### CRP #### [address] [phone] Typing Bookkeeper: Fabrice Barrett MD Platelets (Bld) [#/Vol] NOT REPORTED Normal [facility] Comment on above: Performed By: #### C DP, BMP, SED #### [facility] [address] [place], [place] [phone] Typing Bookkeeper: Jerry Willingham MD #### CRP #### [address] [address] Typing Bookkeeper: Fabrice Barrett MD RBC morphology finding Nom (Bld) NOT REPORTED Normal [facility] Comment on above: Performed By: #### C DP, BMP, SED #### [facility] [address] [place] [address] Typing Bookkeeper: Jerry Willingham MD #### CRP #### [address] [address] Typing Bookkeeper: Fabrice Barrett MD WBC Morphology NOT REPORTED Normal [facility] Comment on above: Performed By: #### C DP, BMP, SED #### [facility] [address] [place], [place] [phone] Typing Bookkeeper: Jerry Willingham MD #### CRP #### [facility] [employer] [address] [place] [address] Typing Bookkeeper: Fabrice Barrett MD Otheron 08-02-2019 Immature granulocytes (Bld) [#/Vol] NOT REPORTED 0 % [place] Sedimentation Rateon 019 Sedimentation Rate 20 mm Normal 0-30 [facility] Comment on above: Performed By: #### C DP, BMP, SED #### [facility] [address] [place] [address] Typing Bookkeeper: Jerry Willingham MD #### CRP #### [facility] [employer] [address] [place] [address] Typing Bookkeeper: Fabrice Barrett MD Sed Rate 20 mm 0 - 30 mm [place] PROGRESSon 07-31-2019 PROGRESS HNO ID: [id number] Author: Sunita Spivey Service: ? Author Type: Physician Type: Progress Notes Filed: 07/31/2019 12:54 PM Note Text: Here for f/u w CT from 07/29 Feels great and back to normal Denies any pain, no fevers and no change in bowel habits and good appetite and energy level Blood pressure 146/71, pulse 86, temperature 36.9 ?C (98.5 ?F), temperature source Oral, resp. rate 18, SpO2 97 %. WAD abd is soft, Nt and ND Small palpable resolving subcutaneous hematoma at RUQ port site A/p: CT reviewed and interval decrease in size of intra-abd abscess and now <2cm ID recommended 1 more week of IV abx Evid for subcutaneous port site hematoma in the R UQ port site and pt has no pain and reassured Repeat CT in 1 mo if complete resolution of abscess no further intervention needed Anticipate cont improvement All of her questions answered and concerns addressed Pt appreciative of the care Sunita Spivey MD Normal [facility] CNOVon 07-30-2019 CNOV Office Visit ([id number] ) CORINANNEKA VELASCO ([id number]) 1970 F Date Time Provider Department 07/30/19 10:15 AM SUNITA SPIVEY [id number] During your visit today, we recorded the following information about you: Temperature Pulse Respiration Blood pressure 98.5 degrees 86/minute 18/minute 146/71 Sunita Spivey MD 07/31/2019 12:54 PM Signed Here for f/u w CT from 07/29 Feels great and back to normal Denies any pain, no fevers and no change in bowel habits and good appetite and energy level Blood pressure 146/71, pulse 86, temperature 36.9 ?C (98.5 ?F), temperature source Oral, resp. rate 18, SpO2 97 %. WAD abd is soft, Nt and ND Small palpable resolving subcutaneous hematoma at RUQ port site A/p: CT reviewed and interval decrease in size of intra-abd abscess and now <2cm ID recommended 1 more week of IV abx Evid for subcutaneous port site hematoma in the R UQ port site and pt has no pain and reassured Repeat CT in 1 mo if complete resolution of abscess no further intervention needed Anticipate cont improvement All of her questions answered and concerns addressed Pt appreciative of the care Sunita Spivey MD Referring Provider: KAVIN IBARRA [[id number]] Allergies As of Date: 07/30/2019 (No Known Allergies) Date Reviewed: 07/30/2019 Reviewed by: Tavia Tijerina Ma - Fully Assessed Reason for Visit: Established Patient [175] Primary Visit Diagnosis:Postprocedu ral intraabdominal abscess [T81.49XA] Prescriptions as of 07/30/2019 Sig: LACTOBACILLUS ACIDOPHILUS CAP* Take 2 capsules by mouth once* AMITRIPTYLINE 10 MG TABLET Take one tablet one hour befo* Problem List As Of Date 07/30/2019 Noted Resolved Postprocedural intraabdominal abscess [T81.49XA]INVALID FOR* Encounter Status:Closed by SUNITA SPIVEY MD on 07/31/19 Normal [facility] OT-CT ABD/PELVIS W CON IMPOR Ton 07-29-2019 OT-CT ABD/PELVIS W CON IMPORT Images were obtained outside of [facility] [id number] N Normal [facility] Basic Metabolic Panelon 07-11 Anion gap [Moles/Vol] 14 mmol/L 9 - 17 mmol/L [place] Bun/Cre Ratio 26 High [place] Calcium [Mass/Vol] 9.8 mg/dL 8.6 - 10. 4 mg/dL [place] Chloride [Moles/Vol] 103 mmol/L 98 - 10 7 mmol/L [place] [employer] CO2 [Moles/Vol] 25 mmol/L 20 - 31 mmol/L [place] [employer] Creatinine [Mass/Vol] 0.62 mg/dL 0.5 - 0.9 mg/dL [place] GFR >60 >60 mL/min [place] GFR Non- >60 >60 mL/min [place] [employer] Glucose [Mass/Vol] 98 mg/dL 70 - 99 mg/dL [place] Interpretation and review of laboratory results Abnormal [place] Potassium [Moles/Vol] 3.9 mmol/L 3.7 - 5.3 mmol/L [place] [employer] Sodium [Moles/Vol] 142 mmol/L 135 - 144 mmol/L [place] [employer] Urea nitrogen [Mass/Vol] 16 mg/dL 6 - 20 mg/d L [place] [employer] Basic Metabolic Profon 07-26 (cont.) Normal [facility] Comment on above: Result Comment: Aver age GFR for 50-59 years old: 93 mL/min/1.73sq m Chronic Kidney Disease: <60 mL/min/1.73sq m Kidney failure: <15 mL/min/1.73sq m eGFR calculated using average adult body mass. Additional eGFR calculator available at: http://[email or web address].Pebble/multiple_crcl_2012.htm Performed By: #### B MP, SED, CRP, CDP #### [facility] [address] [place] [address] Typing Bookkeeper: Jerry Willingham MD Anion gap [Moles/Vol] 14 mmol/L Normal 9-17 [facility] Comment on above: Performed By: #### B MP, SED, CRP, CDP #### [facility] [address] [place], [place] [phone] Typing Bookkeeper: Jerry Willingham MD BUN/CRE Ratio 26 High 9-20 [facility] Comment on above: Performed By: #### B MP, SED, CRP, CDP #### [facility] [address] [place], [place] [phone] Typing Bookkeeper: Jerry Willingham MD Calcium [Mass/Vol] 9.8 mg/dL Normal 8.6-10.4 [facility] Comment on above: Performed By: #### B MP, SED, CRP, CDP #### [facility] [address] [place], [place] [phone] Typing Bookkeeper: Jerry Willingham MD Chloride [Moles/Vol] 103 mmol/L Normal 98-107 [facility] Comment on above: Performed By: #### B MP, SED, CRP, CDP #### [facility] [address] [place], [place] [phone] Typing Bookkeeper: Jerry Willingham MD CO2 [Moles/Vol] 25 mmol/L Normal 20-31 [facility] Comment on above: Performed By: #### B MP, SED, CRP, CDP #### [facility] [address] [place], [place] [phone] Typing Bookkeeper: Jerry Willingham MD Creatinine [Mass/Vol] 0.62 mg/dL Normal 0.50-0.90 [facility] Comment on above: Performed By: #### B MP, SED, CRP, CDP #### [facility] [address] [place], [place] [phone] Typing Bookkeeper: Jerry Willingham MD GFR, Amer >60 Normal >60 [facility] Comment on above: Performed By: #### B MP, SED, CRP, CDP #### [facility] [address] [place], [place] [phone] Typing Bookkeeper: Jerry Willingham MD GFR,non Amer >60 Normal >60 [facility] Comment on above: Performed By: #### B MP, SED, CRP, CDP #### [facility] [address] [place], [place] [phone] Typing Bookkeeper: Jerry Willingham MD Glucose [Mass/Vol] 98 mg/dL Normal 70-99 [facility] Comment on above: Performed By: #### B MP, SED, CRP, CDP #### [facility] [address] [place], [place] [phone] Typing Bookkeeper: Jerry Willingham MD Potassium [Moles/Vol] 3.9 mmol/L Normal 3.7-5.3 [facility] Comment on above: Performed By: #### B MP, SED, CRP, CDP #### [address] [place] [address] Typing Bookkeeper: Jerry Willingham MD Sodium [Moles/Vol] 142 mmol/L Normal 135-144 [facility] Comment on above: Performed By: #### B MP, SED, CRP, CDP #### [facility] [address] [place], [place] [phone] Typing Bookkeeper: Jerry Willinhgam MD Staging: Normal [facility] Comment on above: Result Comment: Stag e 1: Some kidney damage normal GFR Stage 2: Mild kidney damage GFR 60-89 Stage 3: Moderate kidney damage GFR 30-59 Stage 4: Severe kidney damage GFR 15-29 Stage 5: Severe kidney damage GFR <15 ESRD - chronic treatment by dialysis or transplant Performed By: #### B MP, SED, CRP, CDP #### [facility] [address] [place], [place] [phone] Typing Bookkeeper: Jerry Willingham MD Urea nitrogen [Mass/Vol] 16 mg/dL Normal 6-20 [facility] Comment on above: Performed By: #### B MP, SED, CRP, CDP #### [facility] [address] [place] [address] Typing Bookkeeper: Jerry Willingham MD C-Reactive Proteinon 019 CRP [Mass/Vol] mg/L Normal 0.0-5.0 [facility] Comment on above: Performed By: #### B MP, SED, CRP, CDP #### [facility] [address] [place], [place] 6238483 Typing Bookkeeper: Jerry Willingham MD CRP [Mass/Vol] mg/L 0 - 5 mg/L [place] CBC Auto Differentialon 07-11 Basophils (Bld) [#/Vol] 0.03 10*3/uL [place] [employer] Basophils/100 WBC (Bld) 1 % 0 - 2 % M [place] Differential Type NOT REPORTED [place] [employer] Eosinophils (Bld) [#/Vol] 0.19 10*3/uL [place] [employer] Eosinophils/100 WBC (Bld) 4 % 1 - 4 % [place] [employer] Erythrocyte distribution width (RBC) [Ratio] 11.8 % 11.8 - 14.4 % [place] [employer] Hematocrit (Bld) [Volume fraction] 38.4 % 36.3 - 47.1 % [place] [employer] Hemoglobin (Bld) [Mass/Vol] 12.8 g/dL 11.9 - 15.1 g/dL [place] [employer] Immature granulocytes (Bld) [#/Vol] 10*3/uL [place] [employer] Immature granulocytes (Bld) [#/Vol] 0 % 0 [place] [employer] Lymphocytes (Bld) [#/Vol] 1.66 10*3/uL [place] [employer] Lymphocytes/100 WBC (Bld) 32 % 24 - 43 % [place] [employer] MCH (RBC) [Entitic mass] 29.2 pg 25. 2 - 33.5 pg [place] [employer] MCHC (RBC) [Mass/Vol] 33.3 g/dL 28.4 - 34.8 g/dL [place] [employer] MCV (RBC) [Entitic vol] 87.7 fL 82.6 - 102.9 fL [place] [employer] Monocytes (Bld) [#/Vol] 0.57 10*3/uL [place] [employer] Monocytes/100 WBC (Bld) 11 % 3 - 12 % M [place] Platelet mean volume (Bld) [Entitic vol] 9.5 fL 8.1 - 13.5 fL [place] [employer] Platelets (Bld) [#/Vol] NOT REPORTED [place] [employer] Platelets (Bld) [#/Vol] 236 10*3/uL [place] [employer] RBC (Bld) [#/Vol] 4.38 10*6/uL 3.95 - 5.1 1 m/uL [place] [employer] RBC morphology finding Nom (Bld) NOT REPORTED [place] [employer] Segmented neutrophils/100 WBC (Bld) 53 % 36 - 65 % [place] [employer] Segs Absolute 2.77 [place] [employer] WBC (Bld) [#/Vol] 5.2 10*3/uL [place] [employer] WBC (Bld) [#/Vol] 0.0 10*3/uL 0.0 per 10 0 WBC [place] [employer] WBC Morphology NOT REPORTED [place] [employer] CBC with Diffon 07-26-2019 Abs. Basophil 0.03 k/uL Normal 0.00-0.20 [facility] Comment on above: Performed By: #### B MP, SED, CRP, CDP #### [facility] [address] [place] [address] Typing Bookkeeper: Jerry Willingham MD Abs.Imm.Granulocyte <0.03 Normal 0.00-0.30 [facility] Comment on above: Performed By: #### B MP, SED, CRP, CDP #### [facility] [address] [place] [address] Typing Bookkeeper: Jerry Willingham MD Abs.Neutrophil (Seg) 2.77 k/uL Normal 1.50-8.10 [facility] Comment on above: Performed By: #### B MP, SED, CRP, CDP #### [address] [place], [facility] Typing Bookkeeper: Jerry Willingham MD Basophils/100 WBC (Bld) 1 % Normal 0-2 [facility] Comment on above: Performed By: #### B MP, SED, CRP, CDP #### [address] [place], [place] [address] Typing Bookkeeper: Jerry Willingham MD Eosinophils (Bld) [#/Vol] 0.19 10*3/uL Normal 0.00-0.44 [facility] Comment on above: Performed By: #### B MP, SED, CRP, CDP #### [address] [place], [place] [address] Typing Bookkeeper: Jerry Willingham MD Eosinophils/100 WBC (Bld) 4 % Normal 1-4 [facility] Comment on above: Performed By: #### B MP, SED, CRP, CDP #### [address] [place], [facility] Typing Bookkeeper: Jerry Willingham MD Erythrocyte distribution width (RBC) [Ratio] 11.8 % Normal 11.8-14.4 [facility] Comment on above: Performed By: #### B MP, SED, CRP, CDP #### [address] [place], [facility] Typing Bookkeeper: Jerry Willingham MD Hematocrit (Bld) [Volume fraction] 38.4 % Normal 36.3-47.1 [facility] Comment on above: Performed By: #### B MP, SED, CRP, CDP #### [address] [place], [facility] Typing Bookkeeper: Jerry Willingham MD Hemoglobin (Bld) [Mass/Vol] 12.8 g/dL Normal 11.9-15.1 [facility] Comment on above: Performed By: #### B MP, SED, CRP, CDP #### [address] [place], [facility] Typing Bookkeeper: Jerry Willingham MD Immature granulocytes (Bld) [#/Vol] 0 % Normal 0 [facility] Comment on above: Performed By: #### B MP, SED, CRP, CDP #### [facility] [address] [place], [facility] Typing Bookkeeper: Jerry Willingham MD Lymphocytes (Bld) [#/Vol] 1.66 10*3/uL Normal 1.10-3.70 [facility] Comment on above: Performed By: #### B MP, SED, CRP, CDP #### [address] [place], [place] [address] Typing Bookkeeper: Jerry Willingham MD Lymphocytes/100 WBC (Bld) 32 % Normal 24-43 [facility] Comment on above: Performed By: #### B MP, SED, CRP, CDP #### [address] [place], [facility] Typing Bookkeeper: Jerry Willingham MD MCH (RBC) [Entitic mass] 29.2 pg Normal 25.2-33.5 [facility] Comment on above: Performed By: #### B MP, SED, CRP, CDP #### [address] [place], [facility] Typing Bookkeeper: Jerry Willingham MD MCHC (RBC) [Mass/Vol] 33.3 g/dL Normal 28.4-34.8 [facility] Comment on above: Performed By: #### B MP, SED, CRP, CDP #### [address] [place] [address] Typing Bookkeeper: Jerry Willingham MD MCV (RBC) [Entitic vol] 87.7 fL Normal 82.6-102.9 [facility] Comment on above: Performed By: #### B MP, SED, CRP, CDP #### [facility] [address] [place] [address] Typing Bookkeeper: Jerry Willingham MD Monocytes (Bld) [#/Vol] 0.57 10*3/uL Normal 0.10-1.20 [facility] Comment on above: Performed By: #### B MP, SED, CRP, CDP #### [facility] [address] [place], [facility] Typing Bookkeeper: Jerry Willingham MD Monocytes/100 WBC (Bld) 11 % Normal 3-12 [facility] Comment on above: Performed By: #### B MP, SED, CRP, CDP #### [address] [place], [facility] Typing Bookkeeper: Jerry Willingham MD Neutrophil (Seg) 53 % Normal 36-65 [facility] Comment on above: Performed By: #### B MP, SED, CRP, CDP #### [address] [place], [facility] Typing Bookkeeper: Jerry Willingham MD NRBC Automated 0.0 per 100 WBC Normal 0.0 [facility] Comment on above: Performed By: #### B MP, SED, CRP, CDP #### [address] [place], [place] [address] Typing Bookkeeper: Jerry Willingham MD Platelet mean volume (Bld) [Entitic vol] 9.5 fL Normal 8.1-13.5 [facility] Comment on above: Performed By: #### B MP, SED, CRP, CDP #### [address] [place] [address] Typing Bookkeeper: Jerry Willingham MD Platelets (Bld) [#/Vol] 236 10*3/uL Normal 138-453 [facility] Comment on above: Performed By: #### B MP, SED, CRP, CDP #### [facility] [address] [place], [facility] Typing Bookkeeper: Jerry Willingham MD RBC (Bld) [#/Vol] 4.38 10*6/uL Normal 3.95-5.11 [facility] Comment on above: Performed By: #### B MP, SED, CRP, CDP #### [facility] [address] [place] [address] Typing Bookkeeper: Jerry Willingham MD WBC (Bld) [#/Vol] 5.2 10*3/uL Normal 3.5-11.3 [facility] Comment on above: Performed By: #### B MP, SED, CRP, CDP #### [address] [place], [place] [address] Typing Bookkeeper: Jerry Willingham MD Auto Diff Performed NOT REPORTED Normal [facility] Comment on above: Performed By: #### B MP, SED, CRP, CDP #### [address] [place], [facility] Typing Bookkeeper: Jerry Willingham MD Platelets (Bld) [#/Vol] NOT REPORTED Normal [facility] Comment on above: Performed By: #### B MP, SED, CRP, CDP #### [address] [place], [place] [address] Typing Bookkeeper: Jerry Willingham MD RBC morphology finding Nom (Bld) NOT REPORTED Normal [facility] Comment on above: Performed By: #### B MP, SED, CRP, CDP #### [address] [place] [id number] Typing Bookkeeper: Jerry Willingham MD WBC Morphology NOT REPORTED Normal [facility] Comment on above: Performed By: #### B MP, SED, CRP, CDP #### [facility] [address] [place], [facility] Typing Bookkeeper: Jerry Willingham MD Metabolic Panelon 07-26-2019 GFR/1.73 sq M predicted among non-blacks MDRD (S/P/Bld) [Vol rate/Area] [place] [employer] Comment on above: Stage 1: Some kidney damage normal GFR Stage 2: Mild kidney damage GFR 60-89 Stage 3: Moderate kidney damage GFR 30-59 Stage 4: Severe kidney damage GFR 15-29 Stage 5: Severe kidney damage GFR <15 ESRD - chronic treatment by dialysis or transplant Average GFR for 50-5 9 years old: 93 mL/min/1.73sq m Chronic Kidney Disease: <60 mL/min/1.73sq m Kidney failure: <15 mL/min/1.73sq m eGFR calculated using average adult body mass. Additional eGFR calculator available at: http://www.[employer]/multiple_crcl_2012.htm Sedimentation Rateon 019 Sedimentation Rate 31 mm High 0-20 [facility] Comment on above: Performed By: #### B MP, SED, CRP, CDP #### [facility] [address] [place], [place] [id number] Typing Bookkeeper: Jerry Willingham MD Interpretation and review of laboratory results Abnormal [place] Sed Rate 31 mm High 0 - 20 mm [place] [employer] Basic Metabolic Panelon Anion gap [Moles/Vol] 12 mmol/L 9 - 17 mmol/L [place] [employer] Bun/Cre Ratio 27 High [place] [employer] Calcium [Mass/Vol] 9.5 mg/dL 8.6 - 10. 4 mg/dL [place] [employer] Chloride [Moles/Vol] 100 mmol/L 98 - 10 7 mmol/L [place] [employer] CO2 [Moles/Vol] 28 mmol/L 20 - 31 mmol/L [place] [employer] Creatinine [Mass/Vol] 0.6 mg/dL 0.5 - 0.9 mg/dL [place] [employer] GFR >60 >60 mL/min [place] GFR Non- >60 >60 mL/min [place] [employer] Glucose [Mass/Vol] 106 mg/dL High 70 - 99 mg/dL [place] [employer] Interpretation and review of laboratory results Abnormal [place] [employer] Potassium [Moles/Vol] 3.9 mmol/L 3.7 - 5.3 mmol/L [place] [employer] Sodium [Moles/Vol] 140 mmol/L 135 - 144 mmol/L [place] [employer] Urea nitrogen [Mass/Vol] 16 mg/dL 6 - 20 mg/d L [place] [employer] Basic Metabolic Profon 07-19 (cont.) Normal [facility] Comment on above: Result Comment: Aver age GFR for 50-59 years old: 93 mL/min/1.73sq m Chronic Kidney Disease: <60 mL/min/1.73sq m Kidney failure: <15 mL/min/1.73sq m eGFR calculated using average adult body mass. Additional eGFR calculator available at: http://www.[employer]/multiple_crcl_2011.htm Performed By: #### C DP, BMP, SED, CRP #### [facility] [address] [place] [address] Typing Bookkeeper: Jerry Willingham MD Anion gap [Moles/Vol] 12 mmol/L Normal - [facility] Comment on above: Performed By: #### C DP, BMP, SED, CRP #### [facility] [address] [place] [address] Typing Bookkeeper: Jerry Willingham MD BUN/CRE Ratio 27 High - [facility] Comment on above: Performed By: #### C DP, BMP, SED, CRP #### [facility] [address] [place] [address] Typing Bookkeeper: Jerry Willingham MD Calcium [Mass/Vol] 9.5 mg/dL Normal 8.6-10.4 [facility] Comment on above: Performed By: #### C DP, BMP, SED, CRP #### [facility] [address] [place] [id number] Typing Bookkeeper: Jerry Willingham MD Chloride [Moles/Vol] 100 mmol/L Normal 98-107 [facility] Comment on above: Performed By: #### C DP, BMP, SED, CRP #### [facility] [address] [place], [place] [phone] Typing Bookkeeper: Jerry Willingham MD CO2 [Moles/Vol] 28 mmol/L Normal 20-31 [facility] Comment on above: Performed By: #### C DP, BMP, SED, CRP #### [facility] [address] [place], [place] [phone] Typing Bookkeeper: Jerry Willingham MD Creatinine [Mass/Vol] 0.60 mg/dL Normal 0.50-0.90 [facility] Comment on above: Performed By: #### C DP, BMP, SED, CRP #### [facility] [address] [place], [place] [id number] Typing Bookkeeper: Jerry Willingham MD GFR, Amer >60 Normal >60 [facility] Comment on above: Performed By: #### C DP, BMP, SED, CRP #### [facility] [address] [place], [place] [id number] Typing Bookkeeper: Jerry Willingham MD GFR,non Amer >60 Normal >60 [facility] Comment on above: Performed By: #### C DP, BMP, SED, CRP #### [facility] [address] [place], [place] [phone] Typing Bookkeeper: Jerry Willingham MD Glucose [Mass/Vol] 106 mg/dL High 70-99 [facility] Comment on above: Performed By: #### C DP, BMP, SED, CRP #### [facility] [address] [place], [place] [phone] Typing Bookkeeper: Jerry Willingham MD Potassium [Moles/Vol] 3.9 mmol/L Normal 3.7-5.3 [facility] Comment on above: Performed By: #### C DP, BMP, SED, CRP #### [facility] [address] [place] [address] [place] [phone] Typing Bookkeeper: Jerry Willingham MD Sodium [Moles/Vol] 140 mmol/L Normal 135-144 [facility] Comment on above: Performed By: #### C DP, BMP, SED, CRP #### [address] [place] [phone] Typing Bookkeeper: Jerry Willingham MD Staging: Normal [facility] Comment on above: Result Comment: Stag e 1: Some kidney damage normal GFR Stage 2: Mild kidney damage GFR 60-89 Stage 3: Moderate kidney damage GFR 30-59 Stage 4: Severe kidney damage GFR 15-29 Stage 5: Severe kidney damage GFR <15 ESRD - chronic treatment by dialysis or transplant Performed By: #### C DP, BMP, SED, CRP #### [address] [place] [phone] Typing Bookkeeper: Jerry Willingham MD Urea nitrogen [Mass/Vol] 16 mg/dL Normal 6-20 [facility] Comment on above: Performed By: #### C DP, BMP, SED, CRP #### [address] [place] [phone] Typing Bookkeeper: Jerry Willingham MD C-Reactive Proteinon 019 CRP [Mass/Vol] 0.6 mg/L Normal 0.0-5.0 [facility] Comment on above: Performed By: #### C DP, BMP, SED, CRP #### [address] [place] [address] Typing Bookkeeper: Jerry Willingham MD CRP [Mass/Vol] 0.6 mg/L 0 - 5 mg/L [facility], [place] CBC Auto Differentialon Basophils (Bld) [#/Vol] 0.03 10*3/uL [place] [employer] Basophils/100 WBC (Bld) 0 % 0 - 2 % M [place] Differential Type NOT REPORTED [place] [employer] Eosinophils (Bld) [#/Vol] 0.08 10*3/uL [place] [employer] Eosinophils/100 WBC (Bld) 1 % 1 - 4 % [employer] Erythrocyte distribution width (RBC) [Ratio] 11.2 % Low 11.8 - 14.4 % [place] [employer] Hematocrit (Bld) [Volume fraction] 36.2 % Low 36.3 - 47.1 % [place] [employer] Hemoglobin (Bld) [Mass/Vol] 12.0 g/dL 11.9 - 15.1 g/dL [place] [employer] Immature granulocytes (Bld) [#/Vol] 1 % High 0 [employer] Immature granulocytes (Bld) [#/Vol] 0.05 10*3/uL [place] [employer] Interpretation and review of laboratory results Abnormal [place] [employer] Lymphocytes (Bld) [#/Vol] 1.77 10*3/uL [place] [employer] Lymphocytes/100 WBC (Bld) 26 % 24 - 43 % [place] [employer] MCH (RBC) [Entitic mass] 28.9 pg 25. 2 - 33.5 pg [place] [employer] MCHC (RBC) [Mass/Vol] 33.1 g/dL 28.4 - 34.8 g/dL [place] [employer] MCV (RBC) [Entitic vol] 87.2 fL 82.6 - 102.9 fL [place] [employer] Monocytes (Bld) [#/Vol] 0.52 10*3/uL [place] [employer] Monocytes/100 WBC (Bld) 8 % 3 - 12 % M [place] Platelet mean volume (Bld) [Entitic vol] 9.2 fL 8.1 - 13.5 fL [place] [employer] Platelets (Bld) [#/Vol] 383 10*3/uL [place] [employer] Platelets (Bld) [#/Vol] NOT REPORTED [place] [employer] RBC (Bld) [#/Vol] 4.15 10*6/uL 3.95 - 5.1 1 m/uL [place] [employer] RBC morphology finding Nom (Bld) NOT REPORTED [place] [employer] Segmented neutrophils/100 WBC (Bld) 64 % 36 - 65 % [place] [employer] Segs Absolute 4.46 [place] [employer] WBC (Bld) [#/Vol] 6.9 10*3/uL [place] [employer] WBC (Bld) [#/Vol] 0.0 10*3/uL 0.0 per 10 0 WBC [place] [employer] WBC Morphology NOT REPORTED [place] [employer] CBC with Diffon 07-19-2019 Abs. Basophil 0.03 k/uL Normal 0.00-0.20 [facility] Comment on above: Performed By: #### C DP, BMP, SED, CRP #### [facility] [address] [place] [address] [place] [phone] Typing Bookkeeper: Jerry Willingham MD Abs.Imm.Granulocyte 0.05 k/uL Normal 0.00-0.30 [facility] Comment on above: Performed By: #### C DP, BMP, SED, CRP #### [address] [place] [phone] Typing Bookkeeper: Jerry Willingham MD Abs.Neutrophil (Seg) 4.46 k/uL Normal 1.50-8.10 [facility] Comment on above: Performed By: #### C DP, BMP, SED, CRP #### [address] [place] [address] Typing Bookkeeper: Jerry Willingham MD Basophils/100 WBC (Bld) 0 % Normal 0-2 M [facility] Comment on above: Performed By: #### C DP, BMP, SED, CRP #### [address] [place] [address] Typing Bookkeeper: Jerry Willingham MD Eosinophils (Bld) [#/Vol] 0.08 10*3/uL Normal 0.00-0.44 [facility] Comment on above: Performed By: #### C DP, BMP, SED, CRP #### [facility] [address] [place], [place] [address] Typing Bookkeeper: Jerry Willingham MD Eosinophils/100 WBC (Bld) 1 % Normal 1-4 [facility] Comment on above: Performed By: #### C DP, BMP, SED, CRP #### [address] [place] [address] Typing Bookkeeper: Jerry Willingham MD Erythrocyte distribution width (RBC) [Ratio] 11.2 % Low 11.8-14.4 [facility] Comment on above: Performed By: #### C DP, BMP, SED, CRP #### [address] [place] [address] Typing Bookkeeper: Jerry Willingham MD Hematocrit (Bld) [Volume fraction] 36.2 % Low 36.3-47.1 [facility] Comment on above: Performed By: #### C DP, BMP, SED, CRP #### [address] [place] [address] Typing Bookkeeper: Jerry Willingham MD Hemoglobin (Bld) [Mass/Vol] 12.0 g/dL Normal 11.9-15.1 [facility] Comment on above: Performed By: #### C DP, BMP, SED, CRP #### [address] [place], [place] [address] Typing Bookkeeper: Jerry Willingham MD Immature granulocytes (Bld) [#/Vol] 1 % High 0 [facility] Comment on above: Performed By: #### C DP, BMP, SED, CRP #### [address] [place] [phone] Typing Bookkeeper: Jerry Willingham MD Lymphocytes (Bld) [#/Vol] 1.77 10*3/uL Normal 1.10-3.70 [facility] Comment on above: Performed By: #### C DP, BMP, SED, CRP #### [facility] [address] [place], [place] [address] Typing Bookkeeper: Jerry Willingham MD Lymphocytes/100 WBC (Bld) 26 % Normal 24-43 [facility] Comment on above: Performed By: #### C DP, BMP, SED, CRP #### [facility] [address] [address] Typing Bookkeeper: Jerry Willingham MD MCH (RBC) [Entitic mass] 28.9 pg Normal 25.2-33.5 [facility] Comment on above: Performed By: #### C DP, BMP, SED, CRP #### [address] [place] [address] Typing Bookkeeper: Jerry Willingham MD MCHC (RBC) [Mass/Vol] 33.1 g/dL Normal 28.4-34.8 [facility] Comment on above: Performed By: #### C DP, BMP, SED, CRP #### [address] [place] [address] Typing Bookkeeper: Jerry Willingham MD MCV (RBC) [Entitic vol] 87.2 fL Normal 82.6-102.9 [facility] Comment on above: Performed By: #### C DP, BMP, SED, CRP #### [address] [place] [address] Typing Bookkeeper: Jerry Willingham MD Monocytes (Bld) [#/Vol] 0.52 10*3/uL Normal 0.10-1.20 [facility] Comment on above: Performed By: #### C DP, BMP, SED, CRP #### [address] [place] [address] Typing Bookkeeper: Jerry Willingham MD Monocytes/100 WBC (Bld) 8 % Normal 3-12 M [facility] Comment on above: Performed By: #### C DP, BMP, SED, CRP #### [facility] [address] [place], [place] [phone] Typing Bookkeeper: Jerry Willingham MD Neutrophil (Seg) 64 % Normal 36-65 [facility] Comment on above: Performed By: #### C DP, BMP, SED, CRP #### [facility] [address] [place] [address] Typing Bookkeeper: Jerry Willingham MD NRBC Automated 0.0 per 100 WBC Normal 0.0 [facility] Comment on above: Performed By: #### C DP, BMP, SED, CRP #### [facility] [address] [place] [phone] Typing Bookkeeper: Jerry Willingham MD Platelet mean volume (Bld) [Entitic vol] 9.2 fL Normal 8.1-13.5 [facility] Comment on above: Performed By: #### C DP, BMP, SED, CRP #### [address] [place], [facility] Typing Bookkeeper: Jerry Willingham MD Platelets (Bld) [#/Vol] 383 10*3/uL Normal 138-453 [facility] Comment on above: Performed By: #### C DP, BMP, SED, CRP #### [address] [place], [facility] Typing Bookkeeper: Jerry Willingham MD RBC (Bld) [#/Vol] 4.15 10*6/uL Normal 3.95-5.11 [facility] Comment on above: Performed By: #### C DP, BMP, SED, CRP #### [facility] [address] [place] [address] Typing Bookkeeper: Jerry Willingham MD WBC (Bld) [#/Vol] 6.9 10*3/uL Normal 3.5-11.3 [facility] Comment on above: Performed By: #### C DP, BMP, SED, CRP #### [facility] [address] [place], [place] [phone] Typing Bookkeeper: Jerry Willingham MD Auto Diff Performed NOT REPORTED Normal [facility] Comment on above: Performed By: #### C DP, BMP, SED, CRP #### [facility] [address] [place] [address] Typing Bookkeeper: Jerry Willingham MD Platelets (Bld) [#/Vol] NOT REPORTED Normal [facility] Comment on above: Performed By: #### C DP, BMP, SED, CRP #### [facility] [address] [place], [place] [phone] Typing Bookkeeper: Jerry Willingham MD RBC morphology finding Nom (Bld) NOT REPORTED Normal [facility] Comment on above: Performed By: #### C DP, BMP, SED, CRP #### [facility] [address] [place] [phone] Typing Bookkeeper: Jerry Willingham MD WBC Morphology NOT REPORTED Normal [facility] Comment on above: Performed By: #### C DP, BMP, SED, CRP #### [facility] [address] [place], [place] [phone] Typing Bookkeeper: Jerry Willingham MD Metabolic Panelon 07-19-2019 GFR/1.73 sq M predicted among non-blacks MDRD (S/P/Bld) [Vol rate/Area] [place] [employer] Comment on above: Stage 1: Some kidney damage normal GFR Stage 2: Mild kidney damage GFR 60-89 Stage 3: Moderate kidney damage GFR 30-59 Stage 4: Severe kidney damage GFR 15-29 Stage 5: Severe kidney damage GFR <15 ESRD - chronic treatment by dialysis or transplant Average GFR for 50-5 9 years old: 93 mL/min/1.73sq m Chronic Kidney Disease: <60 mL/min/1.73sq m Kidney failure: <15 mL/min/1.73sq m eGFR calculated using average adult body mass. Additional eGFR calculator available at: http://[email or web address]ebble/multiple_crcl_2012.htm Sedimentation Rateon 019 Sedimentation Rate 35 mm High 0-20 [facility] Comment on above: Performed By: #### C DP, BMP, SED, CRP #### [facility] [address] [place] [address] Typing Bookkeeper: Jerry Willingham MD Interpretation and review of laboratory results Abnormal [place] [employer] Sed Rate 35 mm High 0 - 20 mm [place] [employer] Basic Metabolic Panelon Anion gap [Moles/Vol] 14 mmol/L 9 - 17 mmol/L [place] [employer] Bun/Cre Ratio 29 High [place] [employer] Calcium [Mass/Vol] 10.6 mg/dL High 8.6 - 10. 4 mg/dL [place] [employer] Chloride [Moles/Vol] 95 mmol/L Low 98 - 10 7 mmol/L [place] [employer] CO2 [Moles/Vol] 28 mmol/L 20 - 31 mmol/L [place] [employer] Creatinine [Mass/Vol] 0.75 mg/dL 0.5 - 0.9 mg/dL [place] [employer] GFR >60 >60 mL/min [place] GFR Non- >60 >60 mL/min [place] [employer] Glucose [Mass/Vol] 134 mg/dL High 70 - 99 mg/dL [place] [employer] Potassium [Moles/Vol] 4.2 mmol/L 3.7 - 5.3 mmol/L [place] [employer] Sodium [Moles/Vol] 137 mmol/L 135 - 144 mmol/L [place] [employer] Urea nitrogen [Mass/Vol] 22 mg/dL High 6 - 20 mg/d L [place] [employer] Basic Metabolic Profon 07-14 Anion gap [Moles/Vol] 14 mmol/L Normal 9-17 [facility] Comment on above: Performed By: #### B MP, CDP, CRP, SED #### [facility] [address] [place] [address] Typing Bookkeeper: Jerry Willingham MD BUN/CRE Ratio 29 High 9-20 [facility] Comment on above: Performed By: #### B MP, CDP, CRP, SED #### [facility] [address] [place] [address] Typing Bookkeeper: Jerry Willingham MD Calcium [Mass/Vol] 10.6 mg/dL High 8.6-10.4 [facility] Comment on above: Performed By: #### B MP, CDP, CRP, SED #### [facility] [address] [place] [phone] Typing Bookkeeper: Jerry Willingham MD Chloride [Moles/Vol] 95 mmol/L Low 98-107 [facility] Comment on above: Performed By: #### B MP, CDP, CRP, SED #### [facility] [address] [place] [address] Typing Bookkeeper: Jerry Willingham MD CO2 [Moles/Vol] 28 mmol/L Normal 20-31 [facility] Comment on above: Performed By: #### B MP, CDP, CRP, SED #### [facility] [address] [place] [address] Typing Bookkeeper: Jerry Willingham MD Creatinine [Mass/Vol] 0.75 mg/dL Normal 0.50-0.90 [facility] Comment on above: Performed By: #### B MP, CDP, CRP, SED #### [facility] [address] [place] [address] Typing Bookkeeper: Jerry Willingham MD GFR, Amer >60 Normal >60 [facility] Comment on above: Performed By: #### B MP, CDP, CRP, SED #### [facility] [address] [place] [address] Typing Bookkeeper: Jerry Willingham MD GFR,non Amer >60 Normal >60 [facility] Comment on above: Performed By: #### B MP, CDP, CRP, SED #### [facility] [address] [place], [place] [phone] Typing Bookkeeper: Jerry Willingham MD Glucose [Mass/Vol] 134 mg/dL High 70-99 [facility] Comment on above: Performed By: #### B MP, CDP, CRP, SED #### [facility] [address] [place], [place] [phone] Typing Bookkeeper: Jerry Willingham MD Potassium [Moles/Vol] 4.2 mmol/L Normal 3.7-5.3 [facility] Comment on above: Performed By: #### B MP, CDP, CRP, SED #### [facility] [address] [place] [phone] Typing Bookkeeper: Jerry Willingham MD Sodium [Moles/Vol] 137 mmol/L Normal 135-144 [facility] Comment on above: Performed By: #### B MP, CDP, CRP, SED #### [facility] [address] [place] [phone] Typing Bookkeeper: Jerry Willingham MD Urea nitrogen [Mass/Vol] 22 mg/dL High 6-20 [facility] Comment on above: Performed By: #### B MP, CDP, CRP, SED #### [facility] [address] [place], [place] [id number] Typing Bookkeeper: Jerry Willingham MD C-Reactive Proteinon 019 CRP [Mass/Vol] 2.8 mg/L Normal 0.0-5.0 [facility] Comment on above: Performed By: #### B MP, CDP, CRP, SED #### [facility] [address] [place], [place] [phone] Typing Bookkeeper: Jerry Willingham MD CRP [Mass/Vol] 2.8 mg/L 0 - 5 mg/L [facility] CBC Auto Differentialon Basophils (Bld) [#/Vol] 0.00 10*3/uL [place] [employer] Basophils/100 WBC (Bld) 0 % 0 - 2 % M [place] Differential Type NOT REPORTED [place] [employer] Eosinophils (Bld) [#/Vol] 0.20 10*3/uL [place] [employer] Eosinophils/100 WBC (Bld) 2 % 1 - 4 % [employer] Erythrocyte distribution width (RBC) [Ratio] 11.6 % Low 11.8 - 14.4 % [place] [employer] Hematocrit (Bld) [Volume fraction] 39.9 % 36.3 - 47.1 % [employer] Hemoglobin (Bld) [Mass/Vol] 13.3 g/dL 12 - 16 g/dL [place] [employer] Lymphocytes (Bld) [#/Vol] 1.70 10*3/uL [place] [employer] Lymphocytes/100 WBC (Bld) 21 % Low 24 - 44 % [place] [employer] MCH (RBC) [Entitic mass] 29.3 pg 25. 2 - 33.5 pg [place] [employer] MCHC (RBC) [Mass/Vol] 33.5 g/dL 28.4 - 34.8 g/dL [place] [employer] MCV (RBC) [Entitic vol] 87.5 fL 82.6 - 102.9 fL [employer] Monocytes (Bld) [#/Vol] 0.50 10*3/uL [place] [employer] Monocytes/100 WBC (Bld) 7 % 1 - 7 % [place] Platelet mean volume (Bld) [Entitic vol] NOT REPORTED 8.1 - 13.5 fL [employer] Platelets (Bld) [#/Vol] 562 10*3/uL High [place] [employer] Platelets (Bld) [#/Vol] NOT REPORTED [place] [employer] RBC (Bld) [#/Vol] 4.56 10*6/uL 3.95 - 5.1 1 m/uL [place] [employer] RBC morphology finding Nom (Bld) NOT REPORTED [place] [employer] Segmented neutrophils/100 WBC (Bld) 70 % High 36 - 66 % [place] [employer] Segs Absolute 5.50 [place] [employer] WBC (Bld) [#/Vol] NOT REPORTED 0.0 per 10 0 WBC [place] [employer] WBC (Bld) [#/Vol] 8.0 10*3/uL [place] [employer] WBC Morphology NOT REPORTED [place] [employer] CBC with Diffon 07-14-2019 Abs. Basophil 0.00 k/uL Normal 0.0-0.2 [facility] Comment on above: Performed By: #### B MP, CDP, CRP, SED #### [facility] [address] [place] [address] Typing Bookkeeper: Jerry Willingham MD Abs.Neutrophil (Seg) 5.50 k/uL Normal 1.8-7.7 [facility] Comment on above: Performed By: #### B MP, CDP, CRP, SED #### [facility] [address] [place] [address] Typing Bookkeeper: Jerry Willingham MD Basophils/100 WBC (Bld) 0 % Normal 0-2 [facility] Comment on above: Performed By: #### B MP, CDP, CRP, SED #### [facility] [address] [place] [address] Typing Bookkeeper: Jerry Willingham MD Eosinophils (Bld) [#/Vol] 0.20 10*3/uL Normal 0.0-0.4 [facility] Comment on above: Performed By: #### B MP, CDP, CRP, SED #### [facility] [address] [place] [address] Typing Bookkeeper: Jerry Willingham MD Eosinophils/100 WBC (Bld) 2 % Normal 1-4 [facility] Comment on above: Performed By: #### B MP, CDP, CRP, SED #### [facility] [address] [place] [address] Typing Bookkeeper: Jerry Willingham MD Erythrocyte distribution width (RBC) [Ratio] 11.6 % Low 11.8-14.4 [facility] Comment on above: Performed By: #### B MP, CDP, CRP, SED #### [facility] [address] [place] [address] Typing Bookkeeper: Jerry Willingham MD Hematocrit (Bld) [Volume fraction] 39.9 % Normal 36.3-47.1 [facility] Comment on above: Performed By: #### B MP, CDP, CRP, SED #### [facility] [address] [id number] Typing Bookkeeper: Jerry Willingham MD Hemoglobin (Bld) [Mass/Vol] 13.3 g/dL Normal 12.0-16.0 [facility] Comment on above: Performed By: #### B MP, CDP, CRP, SED #### [facility] [address] [place] [address] Typing Bookkeeper: Jerry Willingham MD Lymphocytes (Bld) [#/Vol] 1.70 10*3/uL Normal 1.0-4.8 [facility] Comment on above: Performed By: #### B MP, CDP, CRP, SED #### [facility] [address] [place] [address] Typing Bookkeeper: Jerry Willingham MD Lymphocytes/100 WBC (Bld) 21 % Low 24-44 [facility] Comment on above: Performed By: #### B MP, CDP, CRP, SED #### [facility] [address] [place] [address] Typing Bookkeeper: Jerry Willingham MD MCH (RBC) [Entitic mass] 29.3 pg Normal 25.2-33.5 [facility] Comment on above: Performed By: #### B MP, CDP, CRP, SED #### [facility] [address] [place] [address] Typing Bookkeeper: Jerry Willingham MD MCHC (RBC) [Mass/Vol] 33.5 g/dL Normal 28.4-34.8 [facility] Comment on above: Performed By: #### B MP, CDP, CRP, SED #### [facility] [address] [place] [address] (262) Typing Bookkeeper: Jerry Willingham MD MCV (RBC) [Entitic vol] 87.5 fL Normal 82.6-102.9 [facility] Comment on above: Performed By: #### B MP, CDP, CRP, SED #### [facility] [address] [phone]) Typing Bookkeeper: Jerry Willingham MD Monocytes (Bld) [#/Vol] 0.50 10*3/uL Normal 0.1-0.8 [facility] Comment on above: Performed By: #### B MP, CDP, CRP, SED #### [facility] [address] [place] [address] (405) Typing Bookkeeper: Jerry Willingham MD Monocytes/100 WBC (Bld) 7 % Normal 1-7 M [facility] Comment on above: Performed By: #### B MP, CDP, CRP, SED #### [facility] [address] [place] [address] ([phone]) Typing Bookkeeper: Jerry Willingham MD Neutrophil (Seg) 70 % High 36-66 [facility] Comment on above: Performed By: #### B MP, CDP, CRP, SED #### [facility] [address] [place] [address] (812) Typing Bookkeeper: Jerry Willingham MD Platelets (Bld) [#/Vol] 562 10*3/uL High 138-453 [facility] Comment on above: Performed By: #### B MP, CDP, CRP, SED #### [facility] [address] [place] [address] ([phone]) Typing Bookkeeper: Jerry Willingham MD RBC (Bld) [#/Vol] 4.56 10*6/uL Normal 3.95-5.11 [facility] Comment on above: Performed By: #### B MP, CDP, CRP, SED #### [facility] [address] [place] [address] Typing Bookkeeper: Jerry Willingham MD WBC (Bld) [#/Vol] 8.0 10*3/uL Normal 3.5-11.3 [facility] Comment on above: Performed By: #### B MP, CDP, CRP, SED #### [facility] [address] [place] [address] Typing Bookkeeper: Jerry Willingham MD Metabolic Panelon 07-14-2019 GFR/1.73 sq M predicted among non-blacks MDRD (S/P/Bld) [Vol rate/Area] NOT REPORTED [employer] Otheron 07-14-2019 Immature granulocytes (Bld) [#/Vol] NOT REPORTED [employer] Interpretation and review of laboratory results Abnormal [employer] Sedimentation Rateon 019 Sedimentation Rate 33 mm High 0-20 [facility] Comment on above: Performed By: #### B MP, CDP, CRP, SED #### [facility] [address] [place] [address] Typing Bookkeeper: Jerry Willingham MD Sed Rate 33 mm High 0 - 20 mm [employer] Basic Metabolic Profon 07-13 (cont.) NOT REPORTED Normal [facility] Comment on above: Performed By: #### B MP, CDP, CRP, SED #### [facility] [address] [place] [address] Typing Bookkeeper: Jerry Willinghma MD Staging: NOT REPORTED Normal [facility] Comment on above: Performed By: #### B MP, CDP, CRP, SED #### [facility] [address] [place] [address] Typing Bookkeeper: Jerry Willingham MD CBC with Diffon 07-13-2019 Abs.Imm.Granulocyte NOT REPORTED Normal 0.00-0.30 [facility] Comment on above: Performed By: #### B MP, CDP, CRP, SED #### [facility] [address] [place] [address] Typing Bookkeeper: Jerry Willingham MD Auto Diff Performed NOT REPORTED Normal [facility] Comment on above: Performed By: #### B MP, CDP, CRP, SED #### [facility] [address] [place] [address] Typing Bookkeeper: Jerry Willingham MD Immature granulocytes (Bld) [#/Vol] NOT REPORTED Normal 0 [facility] Comment on above: Performed By: #### B MP, CDP, CRP, SED #### [facility] [address] [place] [address] Typing Bookkeeper: Jerry Willingham MD NRBC Automated NOT REPORTED Normal 0.0 [facility] Comment on above: Performed By: #### B MP, CDP, CRP, SED #### [facility] [address] [place] [address] Typing Bookkeeper: Jerry Willingham MD Platelet mean volume (Bld) [Entitic vol] NOT REPORTED Normal 8.1-13.5 [facility] Comment on above: Performed By: #### B MP, CDP, CRP, SED #### [facility] [address] [place] [address] Typing Bookkeeper: Jerry Willingham MD Platelets (Bld) [#/Vol] NOT REPORTED Normal [facility] Comment on above: Performed By: #### B MP, CDP, CRP, SED #### [facility] [address] [place] [address] Typing Bookkeeper: Jerry Willingham MD RBC morphology finding Nom (Bld) NOT REPORTED Normal [facility] Comment on above: Performed By: #### B MP, CDP, CRP, SED #### [facility] [address] [place] [address] Typing Bookkeeper: Jerry Willingham MD WBC Morphology NOT REPORTED Normal [facility] Comment on above: Performed By: #### B MP, CDP, CRP, SED #### [facility] [address] [place] [address] Typing Bookkeeper: MD Stella Colon [facility]13-2019 [facility] NNEKA ARRIAGA ([id number]) 1970 F Date Time Provider Department 07/13/19 SUNITA SPIVEY [facility] During your visit today, we recorded the following information about you: Linda Cantu Pss 07/13/2019 9:31 AM Signed [facility] called with follow up questions please call [phone] ask for Angela Sheridan RN 07/20/2019 10:56 AM Addendum Return call to Home Health Nurse. Spoke to Angela. Recent hospitalization for intra-abdominal abscess; discharged on 07/09/19 on IV ATB. Angela called to confirm discharge instructions and follow up. Instructed Angela that patient needs CT Abd/Pel and follow up with Dr. Spivey. Patient is going on vacation on 07[place]22/2019 [place] of [place]. Reinforced patient should be cleared before leaving [facility]. 07/20/2019 CT Abd/Pel to be scheduled at [place] (patient lives 2 hours away) 07/21/2019 10:[address] Spivey at [facility] Nurse will assist with scheduling CT and notify patient of all appointment dates and times. 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 [0732] Prescriptions as of 07/13/2019 Sig: MEROPENEM IVPB 1 G IN NS 100 * Inject 100 mL intravenously e* LACTOBACILLUS ACIDOPHILUS CAP* Take 2 capsules by mouth once* FLUCONAZOLE 100 MG TABLET Take 1 tablet by mouth once d* AMITRIPTYLINE 10 MG TABLET Take one tablet one hour befo* Problem List As Of Date 07/13/2019 Noted Resolved Postprocedural intraabdominal abscess [T81.49XA]INVALID FOR* Encounter Status:Closed by SUNITA SPIVEY MD on 07/19/19 [facility] CASE MANAGEMon 07-09-2019 CASE MANAGEM HNO ID: [id number] Author: (Rn) SHER Peralta Service: Care Management Author Type: Registered Nurse Type: Care Mgt Progress Note Filed: 07/09/2019 1:50 PM Note Text: CARE MANAGEMENT DISCHARGE NOTE SERVICE DATE: 07/09/2019 SERVICE TIME: 8 LOS: 2 days Admission Date: 07/06/2019 DISCHARGE ARRANGEMENT (list agency and phone number) [facility] Provider: [facility] Phone: on file [facility] On file CAREGIVER ASSESSMENT: Caregiver is ready, willing and able to meet the patient's needs as recommended by the inter-professional team? Yes Patient's transition needs and plan for meeting these needs: HHC and HIP Does the patient have an acute stroke diagnosis, or has the patient had a stroke during this admission? No HANDOFF COMMUNICATION: Primary Care Physician: Dr. Ibarra Phone Number: via Gem. TRANSPORTATION ARRANGEMENTS: Car with family driving. ADDITIONAL CONTACT RESOURCES: Discharge Information Row Name Admission (Current) from 07/06/[address] [facility] Agency [facility] Start of Care 07/09/19 Durable Medical Equipment Agency [facility] Equipment Needed Home IV Antibiotics, IV Infusion Pump, supplies Patient cleared to discharge from Care Management POV after afternoon administration of IV ATBs. Home agencies to meet with patient at home address this evening at 8:00 PM. SIGNATURE: Michael Peralta RN,BSN PATIENT NAME: Nneka Arriaga DATE: July 09, 2019 TIME: 1:48 PM PAGER/CONTACT #: Normal [facility] NURSING PROGon 07-09-2019 NURSING PROG HNO ID: [id number] Author: Geeta CrespoRnAntonio Ball RN Service: Nursing Author Type: Registered Nurse Type: Nursing Progress Note Filed: 07/09/2019 2:18 PM Note Text: Nursing Progress Note Patient Name: Nneka Arriaga Patient Location: 558-11 Daily Note: 1410 Pt discharged home with HHC. Peripheral IV Line removed, site stable. Instructed pt on follow up appointments with surgery and follow up CT, pt verbalized Understanding. Educated pt on new prescriptions for diflucan, IV Merrem, probiotic, pt verbalized understanding. Belongings with pt. Pt safety maintained 1418 Pt left via wheelchair. This note was completed by: Geeta Ball RN [facility] NURSING PROG HNO ID: [id number] Author: Geeta CrespoRnAntonio Ball RN Service: Nursing Author Type: Registered Nurse Type: Nursing Progress Note Filed: 07/09/2019 8:37 AM Note Text: Nursing Progress Note Patient Name: Nneka Arriaga Patient Location: 558-11 Daily Note: 0830 Pt AANDOx3, resting in bed. Pt reports no pain at this time. No c/o nausea, dizziness, SOB. IVF per orders. Pt reports 1BM diarrhea in am. Surgery team at bedside. All needs met at this time. Fall precautions in place. This note was completed by: Geeta Ball RN [facility] PROCEDUREon 07-09-2019 PROCEDURE HNO ID: [id number] Author: Lisa (Rn) SHER Spaulding Service: PICC Team Author Type: Registered Nurse Type: Procedures Filed: 07/09/2019 10:01 AM Note Text: PICC NURSE INSERTION NOTE DATE OF PROCEDURE: July 09, 2019 TIME OF PROCEDURE: 0930 ORDERING PHYSICIAN: Solo Alex INFORMED CONSENT: Obtained per hospital policy. INDICATION FOR LINE PLACEMENT: IV therapy over six days CONDITION OF LINE PLACEMENT: Sterile PRIMARY PROCEDURALIST: Ruthie Denny RN TECHNICAL EDUCATION TEACHER: Lisa Spaulding RN PRE-PROCEDURE REVIEW ALLERGIES No Known Allergies Known History of Venous Thrombosis: No Known History of Permanent Pacemaker or Automated Implanted Cardiac Device: No Previous Breast Surgery of Lymph Node Dissection: No History of Renal Disease with Arterio-Venous Fistula in Place or Planned: No Ultrasound Assessment Complete: Yes PROCEDURE NARRATIVE SAFE PRACTICE Hand Hygiene per Hospital Policy: Yes Skin Preparation Unit Dose Applicator Used: Chloraprep (CHG + alcohol), allowed to dry. Procedure Surface Cleansed with Antimicrobial Wipes: Yes Barriers Used by Proceduralist and all Assisting Personnel: Yes UNIVERSAL PROTOCOL / SAFETY CHECKLIST Procedure to be performed: Picc Insertion Sign in Communication: Completed Time Out: Team Confirms the Correct Patient, Correct Procedure, Correct Site and Site Marking, Correct Position (if applicable), Prep and Dry Time (if applicable). Time: 0950 Affirmation of Time Out: N/A Sign Out Discussion: Completed Lisa Spaulding RN CATHETER PLACEMENT Brand: Bard Lot: [id number] Number of Lumens: 1 Type of PICC: Power Injectable PICC Lumen Size: 4 Palestinian PLACEMENT TECHNIQUE Lidocaine: Yes. Strength: 1% Volume 2 ml Modified Seldinger Technique Used to Place Line via the Right Basilic Ultrasound Guidance: Yes Number of Attempts at Insertion: 1 Ensured control of guidewire during all aspects of the procedure: Yes Accounted for entire guidewire upon removal: Yes Internal Length: 36 cm External Length: 1 cm Trim Length: 37 cm Mid-Arm Circumference Above Insertion Site: 27 centimeters Post Insertion Pain Level Related to Procedure: 0 Action Taken to Address Pain: None needed Verified Placement: Blood return and Tip location system or device indicates the tip is located in the SVC/CAJ. Line was Flushed with 20 cc normal saline Line Secured with: Securement device Sterile Dressing Applied and Dated: Yes Sterile Caps on all Ports Prior to Leaving Procedure Area: Yes SPECIMENS: None COMPLICATIONS: None Patient Education Materials: Given to patient [facility] Central Line Insertion checklist, attached to the Central Line-Associated Bloodstream Infection Prevention Policy, was utilized during this procedure. QUESTIONS or PROBLEMS: Call [phone] SIGNATURE: Lisa Spaulding RN PATIENT NAME: Nneka Arriaga DATE: July 09, 2019 TIME: 9:56 AM PAGER/CONTACT PHONE: [phone] [facility] PROGRESSon 07-09-2019 PROGRESS HNO ID: [id number] Author: Brianda Bettencourt Service: General Surgery Author Type: Physician Type: Progress Notes Filed: 07/09/2019 10:19 AM Note Text: PROGRESS NOTES - SURGICAL SERVICES Nneka Arriaga [id number] ASSESSMENT/PLAN: Nneka Arriaga is a 49 year old female with a PMH?appendectomy 2 years ago who is s/p diag lap with washout of 1.5cm abscess in RLQ on 06/28 and developed worsening abdominal pain, N/V x 2 days and found to have recurrence of RLQ abscess, now larger (6.1cm) and multiloculated. Per IR, no safe window for perc drainage. Repeat CT on 07/08, shows interval decrease in size of abscess. Plan: - Pain control well controlled - FEN/GI: Regular diet - : Good UOP - Abx: diflucan (PO) x 5 more days (emd on 07/13), IV orion x 14 days (end on 07/20) - F/u Bcx until neg x 48h --> then consult PICC - Encourage IS, OOB AND ambulation - DVT PPx: SCDs, SQH - Dispo: [facility], home health care to be setup Patient Active Hospital Problem List: Postprocedural intraabdominal abscess (07/06/2019) Plan to be discussed with Attending, Dr. Spivey Please page General Surgery on-call [phone] on weekdays after 6pm and on weekends/holidays. Micah May MD General Surgery, PGY-2 SUBJECTIVE 24 hour events: Pain is well controlled on current regimen. Ambulating well. Tolerated diet with no n/v +flatus, +BM. OBJECTIVE PHYSICAL EXAM: BP 103/59 Pulse 79 Temp (Src) 98.7 (Oral) Resp 16 Ht 5' 3 (1.60m) Wt 128 lb 12.8 oz (58.4kg) SpO2 98% BMI 22.82 kg/(m2). O2 Therapy: Room Air Gen: Awake, alert, NAD Respiratory: Unlabored breathing on RA Abdomen: Soft, ntnd Neuro: Grossly non-focal DATA: Date 07/08/19 0700 - 07/09/19 0659 07/09/19 0700 - 07/10/19 0659 Shift 7089-1993 8098-6699 5317-8230 24 Hour Total 4641-6235 3743-5352 4053-2741 24 Hour Total INTAKE PO 200 200 PO 200 200 IV 561 554 7488 IVPB 100 100 LR 180 083 3875 Shift Total 357 534 7807 OUTPUT Shift Total Weight (kg) 58.4 58.4 58.4 58.4 58.4 58.4 58.4 58.4 Diagnostic tests reviewed for today's visit: Most recent labs and imaging results. CBC, Coags, BMP, Mg, Phos Recent Labs 07/08/19 0550 07/07/19 0710 07/06/19 1105 WBC 10.40 14.17* 14.52* HB 11.8 11.2* 11.9 HCT 35.2* 33.0* 35.0* PLT 366 292 277 INR -- -- 1.3 APTT -- -- 23.6 NA -- 138 138 K -- 3.7 4.5 CHLOR -- 100 100 CO2 -- 25 26 BUN -- 8 12 CREAT -- 0.62* 0.74 GLUC -- 98 98 CA -- 9.0 9.1 I saw and evaluated the patient. Discussed with the resident and agree with resident's findings and plan as documented in the resident's note. Feeling well, WBCs normalized. Will obtain PICC and set up outpatient IV antibiotics. Henny Bettencourt MD [facility] PT EDon 07-09-2019 PT ED HNO ID: [id number] Author: Lisa (Rn) SHER Spaulding Service: PICC Team Author Type: Registered Nurse Type: Patient Education Filed: 07/09/2019 9:55 AM Note Text: PATIENT EDUCATION TOPIC: PROCEDURE / SURGERY: Procedure/Surgery: Picc Insertion PATIENT NAME: Nneka Arriaga PATIENT LOCATION: [place] [address]/[place] [address]* READINESS TO LEARN COGNITIVE ABILITY: Alert and oriented MOTIVATION TO LEARN: Interested FAMILY SUPPORT: High - Very involved in pt care INSTRUCTION PROVIDED TO: Patient PATIENT LEARNS BEST BY: Individual Instruction Verbal Instruction FACTORS AFFECTING LEARNING: None PHYSICAL LIMITATIONS AFFECTING LEARNING: None LEARNING RESPONSE DIAGNOSIS: ADULT: Abscess PATIENT/FAMILY RESPONSE: Verbalizes understanding of: POST-PROCEDURE INSTRUCTIONS-Correct actions to take to reduce post procedure complications PRE-PROCEDURE INSTRUCTIONS-Correct action to take to follow pre-procedure instructions METHOD OF INSTRUCTION: Individual instruction Written instruction - handouts Verbal instruction FOLLOW-UP PLAN: Patient instructed to call with any further issues Follow-up with Primary Care INSTRUCTIONAL AIDS USED: NA SUPPLEMENTAL MATERIAL PROVIDED TO PATIENT: None REFERRAL (RECOMMENDATION): None Electronically Signed By: Lisa Spaulding RN [facility] CASE MANAGEMon 07-08-2019 CASE MANAGEM HNO ID: [id number] Author: Michael CrespoRn) SHER Peralta Service: Care Management Author Type: Registered Nurse Type: Care Mgt Progress Note Filed: 07/08/2019 11:28 AM Note Text: CARE MANAGEMENT PROGRESS NOTE SERVICE DATE: 07/08/2019 SERVICE TIME: 1120 LOS: 1 day FREEDOM OF CHOICE GIVEN: Yes patient Financial Disclosure Provided The patient and/or family has been given the Provider List: Yes Provider List: Home Care and Home Care Pharmacy Preference: [facility], [facility]) Needs Prior to Discharge: Discharge Prescriptions;[facility];Insurance Authorization;IV Antibiotics;Equipment Delivery CM sent referral to [facility] ([phone]) and [facility] ([place], [place] ([facility] requested by [facility] and approved by patient). CM awaiting responses. CM anticipating negative 48 hr blood culture result tomorrow and PICC Line placement, with subsequent discharge home with HIP. CM paged Dr. Alex with following message: 5PAV, [phone]; Nneka Arriaga, I am working on pt's expected 8 DC with [facility]. Can you write the scripts for the Home Pharmacy Co. Thanks, [employer] Coordinator Abdirahman [phone]. CM will follow-up as new orders/needs may arise. SIGNATURE: Michael Peralta, RN,BSN PATIENT NAME: Nneka Arriaga DATE: July 08, 2019 TIME: 11:22 AM PAGER/CONTACT #: Eddie [facility] CONSULT PROGon 07-08-2019 CONSULT PROG HNO ID: [id number] Author: Solo Alex Service: Infectious Disease Author Type: Physician Type: Consult Progress Note Filed: 07/09/2019 3:01 AM Note Text: INFECTIOUS DISEASE CONSULT PROGRESS NOTES PATIENT NAME: Nneka Arriaga SERVICE DATE: 07/08/2019 ASSESSMENT AND PLAN: History of appendectomy in 2016. Right lower quadrant pain with finding of 1.5 cm abscess in right lower quadrant on 06/28 at outside hospital, status post OR outside hospital and wash out. will need med records from OSH -- for cultures --not a/a fever now abdominal abscess larger (6.1cm) and multiloculated. 9 ----POA Per surgery, there is no safe access for Interventional Radiology to drain abscess at this time. iv meropenem and diflucan s/p rpt ct abd today----07/08 Interval decrease in right lower quadrant loculated fluid collection now measuring 3.7 x 2.5 x 3.7 cm. clinically improving ----will have picc tomorrow and go home with [facility] iv meropenem x 14 days ---till 07/20 and lactobacillus change diflucan to po x 5 more days . presc in chart ct also reveals -Decrease in size of peripherally enhancing right anterior abdominal wall fluid collection measuring 0.6 x 1.2 cm. d/w pt and explain interval hpi----- fever resolved . feeling better decreasing abdominal pain. ct scan reviewed .decreasing size of abscess collection rlq will go home after picc tomorrow and casemanager to arrange [facility] tomorrow for iv ab no diarrhea on ab. added lactobacillus MEDICATIONS: Current Facility-Administered Medications Medication Dose Route Frequency - heparin 5,000 Units injection 5,000 Units SUBCUTANEOUS q 12 H - NaCl 0.9% 3-5 mL 3-5 mL INTRAVENOUS q 12 H - ondansetron 4 mg tab(s) (ZOFRAN) 4 mg ORAL q 6 H PRN Or - ondansetron (PF) 4 mg injection (ZOFRAN) 4 mg INTRAVENOUS q 6 H PRN - acetaminophen 650 mg tab(s) (TYLENOL) 650 mg ORAL q 6 H - oxyCODONE IR 5 mg tab(s) (ROXICODONE) 5 mg ORAL q 4 H PRN - meropenem 1 g in NaCl 0.9% 100 mL MB+ (MERREM) 1 g INTRAVENOUS q 8 H - fluconazole 200 mg in NaCl (iso-osmotic) 100 mL (DIFLUCAN) 200 mg INTRAVENOUS DAILY - iv contrast (radiology procedure) INTRAVENOUS DIRECTED PRN And - enteric contrast (radiology procedure) ORAL DIRECTED PRN - lactated ringers infusion 75 mL/hr INTRAVENOUS CONTINUOUS - lidocaine 10 mg/mL (1 %) 10-20 mg injection (XYLOCAINE) 1-2 mL INTRADERMAL ONCE - NaCl 0.9% 10 mL 10 mL INTRAVENOUS q 12 H - NaCl 0.9% 20 mL 20 mL INTRAVENOUS PRN OBJECTIVE PHYSICAL EXAM: BP 103/62 Pulse 70 Temp (Src) 98.3 (Oral) Resp 16 Ht 5' 3 (1.60m) Wt 128 lb 12.8 oz (58.4kg) SpO2 97% BMI 22.82 kg/(m2). O2 Therapy: Room Air Skin: There is no evident rash. Neck: Supple. Oropharynx clear. No evidence of thrush. No cervical lymphadenopathy. Chest: Decreased air entry, bilateral bases. Few rales heard. Cardiovascular: S1, S2 normal. No murmur, no gallop heard. Abdomen: Soft. Has tenderness in the right lower quadrant. Mild guarding is present. No rebound. Extreme bowel sounds present. Extremities: Mild edema of lower extremities. She is moving all 4 extremities. Diagnostic tests reviewed for today's visit: Most recent labs and compared Most recent micro Most recent imaging and compared CBC, Coags, BMP, Mg, Phos Recent Labs 07/08/19 0550 07/07/19 0710 07/06/19 1105 WBC 10.40 14.17* 14.52* HB 11.8 11.2* 11.9 HCT 35.2* 33.0* 35.0* PLT 366 292 277 INR -- -- 1.3 APTT -- -- 23.6 NA -- 138 138 K -- 3.7 4.5 CHLOR -- 100 100 CO2 -- 25 26 BUN -- 8 12 CREAT -- 0.62* 0.74 GLUC -- 98 98 CA -- 9.0 9.1 Solo Alex MD 07/08/2019 4:38 PM Normal [facility] CT ABD/PEL W IVCONon 07-08-[address] ABD/PEL W IVCON * * *Final Report* * * DATE OF EXAM: Jul 08 2019 1:42PM FVC 0530 - CT ABD/PEL W IVCON / PROCEDURE REASON: Infection, abdomen-pelvis * * * * Physician Interpretation * * * * EXAMINATION: CT ABDOMEN AND PELVIS WITH IV CONTRAST CLINICAL HISTORY: Infection, abdomen-pelvis recurrence of RLQ abscess TECHNIQUE: CT of the abdomen and pelvis was performed using standard technique, scanning from just above the dome of the diaphragm to the symphysis pubis. MQ: CTAP_3 Contrast: IV: 130 ml of Omnipaque 300 Oral: 900 ml of 50ML Omnipaque [address] Radiation dose: Integrated Dose-length product (DLP) for this visit = 375 mGy*cm. CT Dose Reduction Employed: Automated exposure control(AEC) and iterative recon COMPARISON: CT 07/05/2019 RESULT: Liver: No mass. Biliary: No bile duct dilation. Gallbladder is unremarkable. Spleen: No mass. No splenomegaly. Pancreas: No mass or duct dilation. Adrenals: No mass. Kidneys: No mass, calculus or hydronephrosis. GI tract: No dilation or wall thickening. Lymph nodes: There are reactive lymph nodes within the right lower quadrant mesentery measuring up to 0.9 cm. No abdominal or pelvic lymphadenopathy. Vasculature: The celiac axis and SMA are patent. The portal vein and branches, splenic vein, SMV, and hepatic veins are patent. Pelvis: There is a loculated right lower quadrant fluid collection measuring approximately 3.7 x 2.5 x 3.7 cm (series 2 image 97, series 3 image 31), previously measuring 3.3 x 4.8 x 5.3 cm. Postoperative changes from prior appendectomy. The uterus and left ovary are unremarkable. The right ovary is difficult to visualize within the region of fluid collection. Bones/Soft Tissues: Decrease in size peripherally enhancing right anterior abdominal wall fluid collection measuring 0.6 x 1.2 cm (series 2 image 53), previously measuring 0.9 x 2.1 cm. Lower thorax: Unremarkable. IMPRESSION: 1. Interval decrease in right lower quadrant loculated fluid collection now measuring 3.7 x 2.5 x 3.7 cm. 2. Decrease in size of peripherally enhancing right anterior abdominal wall fluid collection measuring 0.6 x 1.2 cm. Video Production Intern: RENNY Transcribe Date/Time: Jul 08 2019 2:06P Dictated by : OLGA HOLLY MD This examination was interpreted and the report reviewed and electronically signed by: OLGA HOLLY MD on Jul 08 2019 2:18PM EST [id number] N [facility] NURSING PROGon 07-08-2019 NURSING PROG HNO ID: [id number] Author: Ruthie Alicea (Rn) SHER Denny Service: Radiology Author Type: Registered Nurse Type: Nursing Progress Note Filed: 07/08/2019 1:37 PM Note Text: Pt came down from floor for CT scan. #22g PIV in pt's right AC painful to flush, site red, no blood return, and difficult to flush. IV removed, DSD to site. New IV started in pt's left AC, #22g diffusics. Parul OLIVAREZ notified of the above. [facility] NURSING PROG HNO ID: [id number] Author: Areli CrespoRn) SHER Randle Service: PICC Team Author Type: Registered Nurse Type: Nursing Progress Note Filed: 07/08/2019 9:22 AM Note Text: PICC/VASCULAR ACCESS PROGRESS NOTE SERVICE DATE: 07/08/2019 SERVICE TIME: 0915 PICC ordered. Blood C AND S results less than [address] Alex, hold PICC for now. Will continue to follow up. SHER Brennan aware. Patient has working PIV. SIGNATURE: Areli Randle RN PATIENT NAME: Nneka Arriaga DATE: July 08, 2019 TIME: 9:16 AM PAGER/CONTACT #: [id number] [facility] Basic Metabolic Panlon 07-07 Anion gap [Moles/Vol] 13 mmol/L Normal 9-18 [facility] Comment on above: Performed By: #### C BC, PT, PTT, CMP #### [phone] Calcium [Mass/Vol] 9.0 mg/dL Normal 8.5-10.5 [facility] Comment on above: Performed By: #### C BC, PT, PTT, CMP #### [place] [phone] Chloride [Moles/Vol] 100 mmol/L Normal 98-110 [facility] Comment on above: Performed By: #### C BC, PT, PTT, CMP #### [place] [phone] CO2 [Moles/Vol] 25 mmol/L Normal 23-32 [facility] Comment on above: Performed By: #### C BC, PT, PTT, CMP #### [place] [phone] Creatinine [Mass/Vol] 0.62 mg/dL Low 0.70-1.40 [facility] Comment on above: Performed By: #### C BC, PT, PTT, CMP #### [place] [phone] eGFR- Amer. >60 Normal >60 [facility] Comment on above: Performed By: #### C BC, PT, PTT, CMP #### [place] [phone] GFR/1.73 sq M predicted among non-blacks MDRD (S/P/Bld) [Vol rate/Area] mL/min/{1.73_m2} Normal >60 [facility] Comment on above: Performed By: #### C BC, PT, PTT, CMP #### [place] [phone] Glucose [Mass/Vol] 98 mg/dL Normal 65-100 [facility] Comment on above: Performed By: #### C BC, PT, PTT, CMP #### [place] [phone] Potassium [Moles/Vol] 3.7 mmol/L Normal 3.5-5.0 [facility] Comment on above: Performed By: #### C BC, PT, PTT, CMP #### [facility] [id number] [place] [phone] Sodium [Moles/Vol] 138 mmol/L Normal 132-148 [facility] Comment on above: Performed By: #### C BC, PT, PTT, CMP #### [place] [phone] [place] [phone] Urea nitrogen [Mass/Vol] 8 mg/dL Normal 8-25 [facility] Comment on above: Performed By: #### C BC, PT, PTT, CMP #### [place] [phone] Blood Cultureon 07-07-2019 Bacteria identified Cx Nom (Bld) Culture Result - No growth 5 days Normal [facility] Comment on above: Performed By: #### C BC, PT, PTT, CMP #### [place] [phone] CASE MGT INIT ASSESon 2018 CASE MGT INIT ASS HNO ID: [id number] Author: (Rn) SHER Peralta Service: Care Management Author Type: Registered Nurse Type: Care Mgt Initial Assessment Filed: 07/07/2019 2:53 PM Note Text: CARE MANAGEMENT: ASSESSMENT AND DISCHARGE PLAN SERVICE DATE: 07/07/2019 SERVICE TIME: 1449 PRIMARY CARE PHYSICIAN: Kavin Ibarra MD ADMISSION STATUS: Inpatient Needs Prior to Discharge: To Be Determined MEDICAL: Patient/Representativ e Stated Goals: To have reduction in symptoms To improve my functional status To be cured/healed Health Insurance: MMO SUPERMED PLUS None Health Issues Impacting Discharge Plan: RLQ abdominal abscess. Last Discharge Date: N/A Is this Within the Past 30 days? No Advance Directive: Current Advance Directive: None Seconds Handler Attempted to Assist with AD Completion: Yes Action: Education Provided;Patient Unwilling Health Literacy: 1. How often do you need to have someone help you when you read instructions, pamphlets, or other written material from your doctor or pharmacy? Never - 1 2. How confident are you filling out medical forms by yourself? Extremely - 1 If Patient scores > 3 on either question, the following interventions were put into place: Patient did not score > 3 FUNCTIONAL AND COGNITIVE/BEHAVIORAL PRIOR TO ADMISSION: Baseline Mental Status: Alert AND Oriented, Person, Place , Time and Situation Functional Status: Independent Does Patient Currently Receive Any Community Services or Home Care? None Equipment Prior to Admission: None Has the Patient Been in a Residential Facility in the Past 30 days? 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 Primary Contact: Extended Emergency Contact Information Primary Emergency Contact: MARY LOU ARRIAGA Relation: Spouse Supportive: Yes Other Important Patient Contacts: None Caregiver Assessment: Caregiver is ready, willing and able to meet the patient's needs as recommended by the inter-professional team? TBD Patient's transition needs and plan for meeting these needs: TBD Does the patient have an acute stroke diagnosis, or has the patient had a stroke during this admission? No Medication Adherence: I am convinced of the importance of my prescription medication: Agree completely - 0 I worry that my prescription medication will do more harm than good to me Disagree completely - 0 I feel financially burdened by my teh-oo-ldnvyz expenses for my prescription medication: Disagree completely - 0 Patient is categorized as low risk < 2 Are you interested in bedside delivery of your medications? No Food Concerns: In the Last Month, Have You had Trouble Getting Food? No trouble getting food During the Last Month, Have You Worried Whether Your Food Would Run Out Before You Had Enough Money to Buy More? No Is the Patient Psychosocially Complex? 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 SIGNATURE: Michael Peralta RN,BSN PATIENT NAME: Nneka Arriaga DATE: July 07, 2019 TIME: 2:49 PM PAGER/CONTACT #: Normal [facility] CBCon 07-07-2019 Erythrocyte distribution width (RBC) [Ratio] 11.3 % Low 11.5-15.0 [facility] Comment on above: Performed By: #### C BC, PT, PTT, CMP #### [place] [phone] Hematocrit (Bld) [Volume fraction] 33.0 % Low 36.0-46.0 [facility] Comment on above: Performed By: #### C BC, PT, PTT, CMP #### [place] [phone] Hemoglobin (Bld) [Mass/Vol] 11.2 g/dL Low 11.5-15.5 [facility] Comment on above: Performed By: #### C BC, PT, PTT, CMP #### [place] [phone] MCH (RBC) [Entitic mass] 29.2 pG Normal 26.0-34.0 [facility] Comment on above: Performed By: #### C BC, PT, PTT, CMP #### [place] [phone] MCHC (RBC) [Mass/Vol] 33.9 g/dL Normal 30.5-36.0 [facility] Comment on above: Performed By: #### C BC, PT, PTT, CMP #### [place] [phone] MCV (RBC) [Entitic vol] 86.2 fL Normal 80.0-100.0 [facility] Comment on above: Performed By: #### C BC, PT, PTT, CMP #### [place] [phone] Platelet mean volume (Bld) [Entitic vol] 8.9 fL Low 9.0-12.7 [facility] Comment on above: Performed By: #### C BC, PT, PTT, CMP #### [place] [address] Platelets (Bld) [#/Vol] 292 10*3/uL Normal 150-400 [facility] Comment on above: Performed By: #### C BC, PT, PTT, CMP #### [place] [address] RBC (Bld) [#/Vol] 3.83 10*6/uL Low 3.90-5.20 [facility] Comment on above: Performed By: #### C BC, PT, PTT, CMP #### [place] [address] WBC (Bld) [#/Vol] 14.17 10*3/uL High 3.70-11.00 [facility] Comment on above: Performed By: #### C BC, PT, PTT, CMP #### [place] [address] CONSULT PROGon 07-07-2019 CONSULT PROG HNO ID: [id number] Author: Solo Alex Service: Infectious Disease Author Type: Physician Type: Consult Progress Note Filed: 07/08/2019 2:36 AM Note Text: INFECTIOUS DISEASE CONSULT PROGRESS NOTES PATIENT NAME: Nneka Arriaga SERVICE DATE: 07/07/2019 ASSESSMENT AND PLAN: History of appendectomy in 2016. Right lower quadrant pain with finding of 1.5 cm abscess in right lower quadrant on 06/28 at outside hospital, status post OR outside hospital and wash out. will need med records from OSH -- for cultures fever now abdominal abscess larger (6.1cm) and multiloculated. 9 ----POA Per surgery, there is no safe access for Interventional Radiology to drain abscess at this time. iv meropenem and diflucan per surgery--rpt ct tomorrow d/w pt and explain interval hpi----- fever resolved today. pt is feeling better,place picc tomorrow surgery planning for rpt ct scan tomorrow , will follow, no diarrhea on ab. added lactobacillus MEDICATIONS: Current Facility-Administered Medications Medication Dose Route Frequency - heparin 5,000 Units injection 5,000 Units SUBCUTANEOUS q 12 H - NaCl 0.9% 3-5 mL 3-5 mL INTRAVENOUS q 12 H - ondansetron 4 mg tab(s) (ZOFRAN) 4 mg ORAL q 6 H PRN Or - ondansetron (PF) 4 mg injection (ZOFRAN) 4 mg INTRAVENOUS q 6 H PRN - acetaminophen 650 mg tab(s) (TYLENOL) 650 mg ORAL q 6 H - oxyCODONE IR 5 mg tab(s) (ROXICODONE) 5 mg ORAL q 4 H PRN - meropenem 1 g in NaCl 0.9% 100 mL MB+ (MERREM) 1 g INTRAVENOUS q 8 H - fluconazole 200 mg in NaCl (iso-osmotic) 100 mL (DIFLUCAN) 200 mg INTRAVENOUS DAILY - iv contrast (radiology procedure) INTRAVENOUS DIRECTED PRN OBJECTIVE PHYSICAL EXAM: BP 119/65 Pulse 77 Temp (Src) 98.9 (Temporal) Resp 18 Ht 5' 3 (1.60m) Wt 128 lb 12.8 oz (58.4kg) SpO2 95% BMI 22.82 kg/(m2). O2 Therapy: Room Air Skin: There is no evident rash. Neck: Supple. Oropharynx clear. No evidence of thrush. No cervical lymphadenopathy. Chest: Decreased air entry, bilateral bases. Few rales heard. Cardiovascular: S1, S2 normal. No murmur, no gallop heard. Abdomen: Soft. Has tenderness in the right lower quadrant. Mild guarding is present. No rebound. Extreme bowel sounds present. Extremities: Mild edema of lower extremities. She is moving all 4 extremities. Diagnostic tests reviewed for today's visit: Most recent labs and compared Most recent micro Most recent imaging and compared CBC, Coags, BMP, Mg, Phos Recent Labs 07/07/19 0710 07/06/19 1105 WBC 14.17* 14.52* HB 11.2* 11.9 HCT 33.0* 35.0* PLT 292 277 INR -- 1.3 APTT -- 23.6 NA 138 138 K 3.7 4.5 CHLOR 100 100 CO2 25 26 BUN 8 12 CREAT 0.62* 0.74 GLUC 98 98 CA 9.0 9.1 Solo Alex MD 07/07/2019 7:22 PM Normal [facility] PROGRESSon 07-07-2019 PROGRESS HNO ID: [id number] Author: Sunita Spivey Service: General Surgery Author Type: Physician Type: Progress Notes Filed: 07/07/2019 4:36 PM Note Text: PROGRESS NOTE - General Surgery ASSESSMENT AND PLAN Nneka Arriaga is a 49 year old female with a PMH appendectomy 2 years ago who is s/p diag lap with washout of 1.5cm abscess in RLQ on 06/28 and developed worsening abdominal pain, N/V x 2 days and found to have recurrence of RLQ abscess, now larger (6.1cm) and multiloculated. On discussion with IR, due to relationship of bowel covering the abscess anteriorly, there is no safe window for percutaneous drain placement for drainage of abscess at this time. - Pain control w/ tylenol, PRN oxy - FLD, IVF - Zosyn d/c now on meropenem and diflucan--appreciate ID recs - F/u blood cultures from OSH - Will repeat imaging on 07/08 - DVT ppx: IPC, SQH - Dispo: pending resolution of infeciton Plan to be discussed with Dr. Sunita Spivey. Saji Silva MD General Surgery Resident PGY2 [id number] SUBJECTIVE Overnight Events: Acute events overnight: none Pain: mild. Nausea: No. Vomiting: No. Flatus: Yes Bowel movement: No. OBJECTIVE Physical Exam: BP 100/51 Pulse 79 Temp 36.9 ?C (98.5 ?F) (Oral) Resp 17 Ht 160 cm (5' 3 ) Wt 58.4 kg (128 lb 12.8 oz) SpO2 99% BMI 22.82 kg/m? Body mass index is 22.82 kg/m?. GENERAL: awake, alert, in no acute distress LUNGS: nonlabored breathing on RA, no shortness of breath CARDIAC: warm and well perfused throughout, regular rate ABDOMEN: soft, mildly tender in lower abdomen, nondistended Labs: CBC, BMP, MG, PHOS Recent Labs 07/06/19 1105 WBC 14.52* HB 11.9 HCT 35.0* PLT 277 NA 138 K 4.5 CHLOR 100 CO2 26 BUN 12 CREAT 0.74 GLUC 98 CA 9.1 Liver Function, Amylase, AND Lipase Recent Labs 07/06/19 1105 TPROT 7.5 ALB 3.7 ALT 35 AST 24 ALKPHOS 116 TBILI 0.5 Coags Recent Labs 07/06/19 1105 APTT 23.6 INR 1.3 Intake and Output: Date 07/06/19 07 - 07/07/19 0659 07/07/19 0700 - 07/08/19 0659 Shift 8199-8567 1113-9690 4370-4580 24 Hour Total 3795-3909 5907-3453 2095-7588 24 Hour Total INTAKE IV 457 141 8344 Zosyn IV 50 50 LR 489 400 889 Meropenem (Merrem) 100 100 Shift Total 795 599 8310 OUTPUT Urine 200 300 500 Void (ml) 200 300 500 Urine Not Saved. 1 x 1 x Shift Total 200 300 500 Weight (kg) 58.4 58.4 58.4 58.4 58.4 58.4 58.4 58.4 Current Medications: Current Facility-Administered Medications Medication Dose Route Frequency - heparin 5,000 Units injection 5,000 Units SUBCUTANEOUS q 12 H - NaCl 0.9% 3-5 mL 3-5 mL INTRAVENOUS q 12 H - lactated ringers infusion 75 mL/hr INTRAVENOUS CONTINUOUS - ondansetron 4 mg tab(s) (ZOFRAN) 4 mg ORAL q 6 H PRN Or - ondansetron (PF) 4 mg injection (ZOFRAN) 4 mg INTRAVENOUS q 6 H PRN - acetaminophen 650 mg tab(s) (TYLENOL) 650 mg ORAL q 6 H - oxyCODONE IR 5 mg tab(s) (ROXICODONE) 5 mg ORAL q 4 H PRN - iv contrast (radiology procedure) INTRAVENOUS DIRECTED PRN And - enteric contrast (radiology procedure) ORAL DIRECTED PRN - meropenem 1 g in NaCl 0.9% 100 mL MB+ (MERREM) 1 g INTRAVENOUS q 8 H - fluconazole 200 mg in NaCl (iso-osmotic) 100 mL (DIFLUCAN) 200 mg INTRAVENOUS DAILY I have seen and examined the patient with the house staff. Agree with mccall components of their note, care plan and decision making for the day discussed. No pain today and feels much better Appreciate ID consult Plan for repeat CT scan w PO and IV contrast tomm and if evid for improvement of the abscess then plan on D/C w IV abx per ID recs and f/u CT in 2 weeks Pt appreciative of care No obstructive symptoms and will advance diet Sunita Spivey MD July 07, 2019 4:35 PM Normal [facility] APTTon 07-06-2019 aPTT Coag (Bld) [Time] 23.6 s Normal 23.0-32.4 [facility] Comment on above: Result Comment: Unfr actionated Heparin Therapeutic Ranges: Standard Heparin Nomogram: 53 to 78 seconds (anti-Xa level of 0.3 to 0.7 U/ml) Low Dose/ACS Nomogram: 49 to 67 seconds (anti-Xa level of 0.2 to 0.5 U/ml) Stroke Treatment Nomogram: 49 to 67 seconds (anti-Xa level of 0.2 to 0.5 U/ml) Note: The APTT therapeutic range has been determined for the current lot of laboratory APTT reagent in use throughout the [facility]. Performed By: #### C BC, PT, PTT, CMP #### [place] [phone] CBCon 07-06-2019 Erythrocyte distribution width (RBC) [Ratio] 11.3 % Low 11.5-15.0 [facility] Comment on above: Performed By: #### C BC, PT, PTT, CMP #### [place] [phone] Hematocrit (Bld) [Volume fraction] 35.0 % Low 36.0-46.0 [facility] Comment on above: Performed By: #### C BC, PT, PTT, CMP #### [place] [phone] Hemoglobin (Bld) [Mass/Vol] 11.9 g/dL Normal 11.5-15.5 [facility] Comment on above: Performed By: #### C BC, PT, PTT, CMP #### [place] [phone] MCH (RBC) [Entitic mass] 29.5 pG Normal 26.0-34.0 [facility] Comment on above: Performed By: #### C BC, PT, PTT, CMP #### [place] [phone] MCHC (RBC) [Mass/Vol] 34.0 g/dL Normal 30.5-36.0 [facility] Comment on above: Performed By: #### C BC, PT, PTT, CMP #### [place] [phone] MCV (RBC) [Entitic vol] 86.6 fL Normal 80.0-100.0 [facility] Comment on above: Performed By: #### C BC, PT, PTT, CMP #### [place] [phone] Platelet mean volume (Bld) [Entitic vol] 8.6 fL Low 9.0-12.7 [facility] Comment on above: Performed By: #### C BC, PT, PTT, CMP #### [place] [phone] Platelets (Bld) [#/Vol] 277 10*3/uL Normal 150-400 [facility] Comment on above: Performed By: #### C BC, PT, PTT, CMP #### [place] [phone] RBC (Bld) [#/Vol] 4.04 10*6/uL Normal 3.90-5.20 [facility] Comment on above: Performed By: #### C BC, PT, PTT, CMP #### [place] [phone] WBC (Bld) [#/Vol] 14.52 10*3/uL High 3.70-11.00 [facility] Comment on above: Performed By: #### C BC, PT, PTT, CMP #### [place] [phone] CONSULTon 07-06-2019 CONSULT HNO ID: [id number] Author: Solo Alex Service: Infectious Disease Author Type: Physician Type: Consults Filed: 07/08/2019 2:38 AM Note Text: [facility] - Consultation NNEKA ARRIAGA : 1970 AGE: 49 SEX: F CSN: [id number] [facility] [place]: [facility] LOCATION: [id number] ATTENDING PHYSICIAN: Sunita Spivey M.D. DATE OF SERVICE: 07/06/2019 TIME OF SERVICE: 09:38 PM CONSULTING PHYSICIAN: Solo Alex M.D. REASON FOR CONSULTATION: To evaluate for recurrent right lower quadrant abscess with history of appendectomy. HISTORY OF PRESENT ILLNESS: This is a 49-year-old female who has a history of appendectomy in 2016 in outside hospital. The patient reported she was doing fine after appendectomy until 06/17 when she started to experience some abdominal pain and fever for which she presented to outside hospital ED and found to have 1.5 cm intraabdominal abscess adjacent to previous appendectomy site. She was taken to OR on 06/28 and washout was performed, but no finding of appendiceal stump. The KIRILL drain was placed intraoperatively. She continued to have fever. Intraoperative, per report, cultures were Streptococcus viridans group and E coli. The patient continued to be febrile postop and was discharged on 07/02; however, after discharge, her pain became more intense, sharp, and in the last few day, she also started with nausea and emesis, was not able to keep p.o. down. The patient was followed up postop in clinic on 07/05 when she was found to have rebound tenderness and CT scan was obtained, which revealed 6 cm thin-walled abscess in the right lower quadrant, which was larger than previous abscess of 1.5 cm preop. The patient also became tachycardic and she was then transferred to [facility], has been admitted under surgical team. Per Interventional Radiology, there is no safe access for IR to drain the abscess. She is on IV vancomycin and continued to have fever of 101.3. The patient reports the pain in the right lower quadrant is about 6/10 to 7/10, localized, no radiation, worse even with movement, better with the pain medication, but pain does not fully get resolved. COMPLETE REVIEW OF SYSTEMS: No headache. No sinus congestion. No neck pain. No thyroid enlargement. No cervical lymph node. No chest pain. No palpitations. Has right lower quadrant abdominal pain. No visual problem. No hearing loss. Ten systems reviewed, otherwise were negative. PAST MEDICAL HISTORY: Significant for history of appendectomy in 2016, right lower quadrant abscess diagnosed on 06/27 at outside hospital, OR 06/28 outside hospital. Current Facility-Administered Medications Medication Dose Route Frequency Provider Last Rate Last Dose - heparin 5,000 Units injection 5,000 Units SUBCUTANEOUS q 12 H Kit (Res) Strong 5,000 Units at 07/06/192101 - NaCl 0.9% 3-5 mL 3-5 mL INTRAVENOUS q 12 H Kit (Res) Strong 3 mL at 07/06/192102 - lactated ringers infusion 75 mL/hr INTRAVENOUS CONTINUOUS Kit (Res) Strong 75 mL/hr at 07/06/192308 75 mL/hr at 07/06/192308 - ondansetron 4 mg tab(s) (ZOFRAN) 4 mg ORAL q 6 H PRN Kit (Res) Strong 4 mg at 07/07/19145 Or - ondansetron (PF) 4 mg injection (ZOFRAN) 4 mg INTRAVENOUS q 6 H PRN Kit (Res) Strong - acetaminophen 650 mg tab(s) (TYLENOL) 650 mg ORAL q 6 H Kit (Res) Strong 650 mg at 07/07/19137 - oxyCODONE IR 5 mg tab(s) (ROXICODONE) 5 mg ORAL q 4 H PRN Kit (Res) Strong - iv contrast (radiology procedure) INTRAVENOUS DIRECTED PRN Micah (Res) Karun And - enteric contrast (radiology procedure) ORAL DIRECTED PRN Micah (Res) Karun - meropenem 1 g in NaCl 0.9% 100 mL MB+ (MERREM) 1 g INTRAVENOUS q 8 H Solo Isai 200 mL/hr at 07/06/192308 1 g at 07/06/192308 - fluconazole 200 mg in NaCl (iso-osmotic) 100 mL (DIFLUCAN) 200 mg INTRAVENOUS DAILY Solo Isai 100 mL/hr at 07/07/19137 200 mg at 07/07/19137 ALLERGIES: No known allergies. SOCIAL HISTORY: Does not smoke. Does not drink alcohol. FAMILY HISTORY: No history of colon cancer in the family. PHYSICAL EXAMINATION: General: The patient is conscious, oriented, lying in bed, in no apparent distress at present. Vital Signs: T-max of 101.3, pulse of 85, respiratory rate 16, blood pressure is 118/59, 95% and 99% on room air. Weight is 58.4 kg/m sq. Skin: There is no evident rash. Neck: Supple. Oropharynx clear. No evidence of thrush. No cervical lymphadenopathy. Chest: Decreased air entry, bilateral bases. Few rales heard. Cardiovascular: S1, S2 normal. No murmur, no gallop heard. Abdomen: Soft. Has tenderness in the right lower quadrant. Mild guarding is present. No rebound. Extreme bowel sounds present. Extremities: Mild edema of lower extremities. She is moving all 4 extremities. LABORATORY FINDINGS: Her lab investigation revealed her white cell count is 14.52, hemoglobin is 11.9, hematocrit is 35.0, platelet is 277. BUN 12, creatinine of 0.7, glucose of 98. LFTs are normal. CT of the abdomen and pelvis at outside hospital reveals heterogeneous soft tissue and fluid collection in the right lower quadrant measuring 5 x 4.2 x 6.1 cm nonobstructive bowel gas pattern. Wall thickening of the sigmoid colon. The patient is moving all 4 extremities. ASSESSMENT AND PLAN: This is a 49-year-old female hospitalized and has the following issues: 1. History of appendectomy in 2016. 2. Right lower quadrant pain with finding of 1.5 cm abscess in right lower quadrant on 06/28 at outside hospital, status post OR outside hospital and washed out. We will need medical records from outside regarding culture and sensitivity. At present, we will cover with IV meropenem and Diflucan and follow. Discontinue Zosyn. 3. CT scan was repeated - which revealed 6 cm thin-walled abscess in the right lower quadrant, which was larger than previous abscess Per surgery, there is no safe access for Interventional Radiology to drain abscess at this time. Therefore, recommending intravenous antibiotics and repeat CT scan in 2 weeks. 4. we will follow clinically. The patient is in agreement with the above plan. plan was discussed with the pt in detail and the nursing staff Thank you for your consultation. We will follow the patient along with you. Solo Alex M.D. Infectious Disease AB:[id number] /[id number] [facility] CONSULT PROGon 07-06-2019 CONSULT PROG HNO ID: [id number] Author: Solo Alex Service: Infectious Disease Author Type: Physician Type: Consult Progress Note Filed: 07/07/2019 1:59 AM Note Text: s/p appendectomy 2016 recurrent RT lower q multiloculated abscess now larger 6.1 cm there is no safe access for IR to drain abscess / spiking fever on iv zosyn switch to iv meropenem and diflucan and follow clinically need outside med records for cultures thx will follow. Normal [facility] Comp Metabolic Panelon 07-06 Albumin [Mass/Vol] 3.7 g/dL Normal 3.5-5.0 [facility] Comment on above: Performed By: #### C BC, PT, PTT, CMP #### [place] [phone] ALP [Catalytic activity/Vol] 116 U/L Normal 34-123 [facility] Comment on above: Performed By: #### C BC, PT, PTT, CMP #### [place] [phone] ALT [Catalytic activity/Vol] 35 U/L Normal 0-45 [facility] Comment on above: Performed By: #### C BC, PT, PTT, CMP #### [place] [phone] Anion gap [Moles/Vol] 12 mmol/L Normal 9-18 [facility] Comment on above: Performed By: #### C BC, PT, PTT, CMP #### [place] [phone] AST [Catalytic activity/Vol] 24 U/L Normal 7-40 [facility] Comment on above: Performed By: #### C BC, PT, PTT, CMP #### [place] [phone] Bilirubin [Mass/Vol] 0.5 mg/dL Normal 0.2-1.3 [facility] Comment on above: Performed By: #### C BC, PT, PTT, CMP #### [place] [address] Calcium [Mass/Vol] 9.1 mg/dL Normal 8.5-10.5 [facility] Comment on above: Performed By: #### C BC, PT, PTT, CMP #### [place] [address] Chloride [Moles/Vol] 100 mmol/L Normal 98-110 [facility] Comment on above: Performed By: #### C BC, PT, PTT, CMP #### [place] [address] CO2 [Moles/Vol] 26 mmol/L Normal 23-32 [facility] Comment on above: Performed By: #### C BC, PT, PTT, CMP #### [place] [address] Creatinine [Mass/Vol] 0.74 mg/dL Normal 0.70-1.40 [facility] Comment on above: Performed By: #### C BC, PT, PTT, CMP #### [place] [id number] eGFR- Amer. >60 Normal >60 [facility] Comment on above: Performed By: #### C BC, PT, PTT, CMP #### [address] GFR/1.73 sq M predicted among non-blacks MDRD (S/P/Bld) [Vol rate/Area] mL/min/{1.73_m2} Normal >60 [facility] Comment on above: Performed By: #### C BC, PT, PTT, CMP #### [place] [id number] Glucose [Mass/Vol] 98 mg/dL Normal 65-100 [facility] Comment on above: Performed By: #### C BC, PT, PTT, CMP #### [place] [phone] Potassium [Moles/Vol] 4.5 mmol/L Normal 3.5-5.0 [facility] Comment on above: Performed By: #### C BC, PT, PTT, CMP #### [place] [phone] Protein [Mass/Vol] 7.5 g/dL Normal 6.0-8.4 [facility] Comment on above: Performed By: #### C BC, PT, PTT, CMP #### [place] [phone] Sodium [Moles/Vol] 138 mmol/L Normal 132-148 [facility] Comment on above: Performed By: #### C BC, PT, PTT, CMP #### [place] [phone] Urea nitrogen [Mass/Vol] 12 mg/dL Normal 8-25 [facility] Comment on above: Performed By: #### C BC, PT, PTT, CMP #### [place] [phone] Confirm Blood Typeon 019 ABO/RH(D) Positive Normal [facility] Comment on above: Performed By: #### C ONABO #### [place] [phone] HISTORY PHYSICALon 9 HISTORY PHYSICAL HNO ID: [id number] Author: Sunita Spivey Service: General Surgery Author Type: Physician Type: HANDP Filed: 07/06/2019 5:36 PM Note Text: SURGICAL SERVICES HISTORY AND PHYSICAL EXAMINATION SERVICE DATE: 07/06/2019 PRIMARY CARE PHYSICIAN: Kavin Ibarra MD SUBJECTIVE CHIEF COMPLAINT: Abdominal pain HISTORY OF PRESENT ILLNESS: Ms. Arriaga is a 49 year old female with a PMH of appendectomy in 2015 who presents as a transfer from OSH for recurrent intraabdominal abscesses. She had been in good health since her appendectomy until 06/27 when she began to experience increasing abdominal pain and fevers for which she presented to an OSH ED where she was found to have a 1.5cm intra-abdominal abscess adjacent to her prior appendectomy site. Due to concern for appendiceal stump, she was taken to the OR on 06/28 and a washout was performed with no finding of appendiceal stump. A KIRILL drain was placed intraoperatively. She continued to have fevers, so she was placed on IV abx. Intraop cultures were positive E. Coli and strep anginosis which were ogden sensitive, so she was placed on cefdinir. She continued to have fevers postoperative, so she remained hospitalized until 07/02 when she was discharged to home after resolution of fevers. She reports that her pain was tolerable when she was discharged, so she attributed it to postoperative pain. However, it began to grow more intense and sharp throughout the past few days. She also experienced nausea and multiple bouts of vomiting. She has not had good PO intake during this time. She was followed up postoperatively in clinic on 07/05 and was found to have acute abdomen and rebound tenderness (per records) so she was sent to an OSH for CT scan which showed 6cm thin-walled abscess in RLQ in an area similar to previous abscess. She was susbeuqently transferred for further management. Prior to transfer, at OSH she was noted to be febrile and tachycardic. She was given a dose of IV zosyn and blood cultures were drawn this AM. She currently endorses moderate pain in lower abdomen and mild ongoing nausea. Continues to pass flatus. Denies fever, chills, CP, SOB, weight loss, lightheadedness, and dysuria. PAST MEDICAL HISTORY: No past medical history on file. PAST SURGICAL HISTORY: No past surgical history on file. FAMILY HISTORY: No family history on file. SOCIAL HISTORY: Social History Tobacco Use - Smoking status: Never Smoker Substance Use Topics - Alcohol use: Not on file - Drug use: Not on file MEDICATIONS: Prior to Admission Medications: Medications Prior to Admission: AMITRIPTYLINE 10 MG ORAL TAB Take one tablet one hour before bedtime Disp: 30 Rfl: 5 Current Facility-Administered Medications Medication Dose Route Frequency - heparin 5,000 Units injection 5,000 Units SUBCUTANEOUS q 12 H - NaCl 0.9% 3-5 mL 3-5 mL INTRAVENOUS q 12 H - lactated ringers infusion 75 mL/hr INTRAVENOUS CONTINUOUS - ondansetron 4 mg tab(s) (ZOFRAN) 4 mg ORAL q 6 H PRN Or - ondansetron (PF) 4 mg injection (ZOFRAN) 4 mg INTRAVENOUS q 6 H PRN - acetaminophen 650 mg tab(s) (TYLENOL) 650 mg ORAL q 6 H - oxyCODONE IR 5 mg tab(s) (ROXICODONE) 5 mg ORAL q 4 H PRN - piperacillin-tazobact am iv piggyback 3.375 g in dextrose (iso-osmotic) 50 mL (ZOSYN) 3.375 g INTRAVENOUS q 6 H ALLERGIES: ALLERGIES No Known Allergies COMPLETE REVIEW OF SYSTEMS: A 10 Point Review of Systems was completed; pertinent positives are noted above in HPI, all other reviewed are negative OBJECTIVE PHYSICAL EXAM: BP 107/57 Pulse 80 Temp (Src) 98.9 (Oral) Resp 16 Ht 5' 3 (1.60m) Wt 128 lb 12.8 oz (58.4kg) SpO2 99% BMI 22.82 kg/(m2). O2 Therapy: Room Air GENERAL: alert, no distress, cooperative LUNGS: Lungs clear to auscultation, Good diaphragmatic excursion CARDIAC: Normal S1 and S2; no rubs, murmurs, or gallops ABDOMEN: soft, mildly distended, TTP in RLQ>LLQ (given pain meds prior), no rebound tenderness, mild guarding EXTREMITIES: Extremities normal, no deformities, edema, clubbing or skin discoloration. Good capillary refill. NEURO: Grossly nonfocal DATA: Diagnostic tests reviewed for today's visit: Most recent labs and imaging results. CT A/P (07/05/2019) FINDINGS: LUNG BASES: No visible pulmonary or pleural disease. LIVER: No enlargement, atrophy, abnormal density, or significant focal lesion. BILIARY: No visible dilatation or calcification. PANCREAS: No lesion, fluid collection, ductal dilatation, or atrophy. SPLEEN: No enlargement or focal lesion. ADRENALS: No mass or enlargement. KIDNEYS: No mass, obstruction, or calcification. BOWEL/MESENTERY: Heterogeneous soft tissue and fluid collection in the right lower quadrant measuring 5.0 x 4.2 x 6.1 cm. Nonobstructive bowel gas pattern. Wall thickening of the sigmoid colon AORTA/VASCULAR: No aneurysm or dissection. RETROPERITONEUM: No mass or adenopathy. LYMPH NODES: No adenopathy. URINARY BLADDER: No visible focal wall thickening, lesion, or calculus. PELVIC ORGANS: Dilated endometrial cavity, correlate with the menstrual cycle ABDOMINAL WALL: Fluid in soft tissue right upper quadrant subcutaneous fat likely related to laparoscopic surgery BONES: No bony lesion or fracture. CONCLUSION: 1. 6.1 cm right lower quadrant abscess CBC: Recent Labs 07/06/19 1105 WBC 14.52* RBC 4.04 HB 11.9 HCT 35.0* PLT 277 MCV 86.6 MCH 29.5 MPV 8.6* CMP: Recent Labs 07/06/19 1105 NA 138 K 4.5 CHLOR 100 CO2 26 BUN 12 CREAT 0.74 GLUC 98 TPROT 7.5 CA 9.1 TBILI 0.5 ALKPHOS 116 ALT 35 AST 24 ANION 12 ASSESSMENT AND PLAN Nneka Arriaga is a 49 year old female with a H appendectomy 2 years ago who is s/p diag lap with washout of 1.5cm abscess in RLQ on 06/28 and developed worsening abdominal pain, N/V x 2 days and found to have recurrence of RLQ abscess, now larger (6.1cm) and multiloculated. On discussion with IR, due to relationship of bowel covering the abscess anteriorly, there is no safe window for percutaneous drain placement for drainage of abscess at this time. - Pain control w/ tylenol, PRN oxy - NPO, IVF, hold off NG tube unless experiences worsening vomiting/distention - Antiemetics - IV zosyn for empiric treatment--f/u blood cultures draw at OSH - Infectious disease consult - CT A/P to be uploaded into [facility] - Will repeat imaging on 07/08 - DVT ppx: IPC, SQH - Dispo: pending resolution of infeciton Patient Active Hospital Problem List: Postprocedural intraabdominal abscess (07/06/2019) Plan discussed with Dr. Spivey Please page General Surgery on-call [phone] on weekdays after 6pm and on weekends/holidays. Micah May MD General Surgery, PGY-2 I have seen and examined the patient with the house staff. Agree with mccall components of their note, care plan and decision making for the day discussed. Feels well now and has minimal pain Reviewed CT w radiology and unfortunately there is no safe access for IR to drain abscess in RLQ Given pt has improved will cont abx tx only for now and repeat CT in 2 days If no worsening then can cont tx w IV abx and repeat CT in 2 weeks If worsens then will need diag lap again for approp drainage of her abscess although there is increased risk of bowel injury at this juncture since she already had diag lap 2 weeks ago All of her questions answered and concerns addressed Pt appreciative of the care MD Sunita Alexandra MD July 06, 2019 5:34 PM [facility] NURSING PROGon 07-06-2019 NURSING PROG HNO ID: [id number] Author: Brianne CrespoRn) SHER Davis Service: ? Author Type: Registered Nurse Type: Nursing Progress Note Filed: 07/06/2019 5:35 PM Note Text: Nursing Progress Note Patient Name: Nneka Arriaga Patient Location: [id number]/[facility]- 57- 1630- Updated patient on orders. Patient asked if she could have liquids to drink. I informed her that she is still NPO. Pt stated that Dr was just in room and told her she could have clear liquids. Spoke with Dr. May ([facility]) who stated that she should be NPO d/t pt nausea. 1730- Pt and are very persistent regarding patient being able to have a diet order. has came up to this RN in [facility] multiple times asking. Pt now has fever of 101.2. Will administer tylenol and page Dr. Spivey regarding these issues. This note was completed by: Brianne Davis RN [facility] NURSING PROG HNO ID: [id number] Author: Brianne CrespoRn) SHER Davis Service: ? Author Type: Registered Nurse Type: Nursing Progress Note Filed: 07/06/2019 10:46 AM Note Text: Admission/Transfer Note PATIENT NAME: Nneka Arriaga Patient admitted from outside hospital via stretcher in stable condition. Actions taken: Patient oriented to room, call light function, prescribed activities, Patient rights and Quiet at night. No futher actions taken at this time. Will continue to monitor and check with patient. This note was completed by: Brianne Davis RN [facility] Protimeon 07-06-2019 PT Coag (PPP) [Time] 1.3 s Normal 0.9-1.3 [facility] Comment on above: Result Comment: Britni min K Antagonist (VKA) Therapeutic Range: INR 2 to 3 (Target INR of 2.5) Note: For patients treated with VKA drugs, such as warfarin, the [place] [employer] 2012 Guideline recommends a therapeutic INR range of 2 to 3 (target INR of 2.5). This recommendation includes high-risk patients with antiphospholipid syndrome with previous arterial or venous thromboembolism, current-generation mechanical or bioprosthetic aortic heart valve replacement. Note: Patients with mechanical aortic valve replacement and additional risk factors for thromboembolic events (atrial fibrillation, previous thromboembolism, LV dysfunction, hypercoagulable conditions) or an older generation mechanical AVR (i.e., ball in-Cage) or any mechanical MVR should have a INR therapeutic range of 2.5 to 3.5 (target INR of 3). Sona VARGAS, et al. Chest 2012, 141:7S-47S Linda RA, et al. JACC 2017, 70: 252-289 Performed By: #### C BC, PT, PTT, CMP #### [place] [phone] PT Coag (PPP) [Time] 13.3 s High 9.7-13.0 [facility] Comment on above: Performed By: #### C BC, PT, PTT, CMP #### [place] [address] Type and Screenon 07-06-2019 ABO/RH(D) Positive [facility] Comment on above: Performed By: #### T SCR #### [place] [phone] AL-CT ABD/PELVIS W CON IMPOR Ton 07-05-2019 AL-CT ABD/PELVIS W CON IMPORT Images were obtained outside of [facility] [id number] N Normal [facility] AL-XR KUB 1 VIEW IMPORTon AL-XR KUB 1 VIEW IMPORT Images were obta ined outside of [facility] [id number] N [facility] DX-XR ABD FLAT UP/PA CH IMPO RTon 2019 DX-XR ABD FLAT UP/PA CH IMPORT Images were obtained outside of [facility] [id number] N [facility] DX-XR ABD FLAT UP/PA CH IMPO RTon 06-30-2019 DX-XR ABD FLAT UP/PA CH IMPORT Images were obtained outside of [facility] [id number] [facility] AL-CT ABD/PELVIS W CON IMPOR Ton 06-27-2019 AL-CT ABD/PELVIS W CON IMPORT Images were obtained outside of [facility] [id number] [facility] Vital Signs Date Time Vital Sign Value Performing Clinician Faci lity 10-09-2022 12:30-0500 Diastolic blood pressure 59 mm[Hg] MD Kavin Ibarra Work Phone: [facility] 10-09-2022 12:30-0500 Heart rate 76 /min MD Kavin Ibarra Work Phone: [facility] 10-09-2022 12:30-0500 Respiratory rate 16 /min MD Kavin Ibarra Work Phone: [facility] 10-09-2022 12:30-0500 SaO2% (BldA) [Mass fraction] 97 % MD Kavin Ibarra Work Phone: [facility] 10-09-2022 12:30-0500 Systolic blood pressure 121 mm[Hg] MD Kavin Ibarra Work Phone: [facility] 10-09-2022 11:02-0500 Body height 157.48 cm MD Kavin Ibarra Work Phone: [facility] 10-09-2022 11:02-0500 Body temperature 98.8 [degF] MD Kavin Ibarra Work Phone: [facility] 10-09-2022 11:02-0500 Body weight 61.8 kg MD Kavin Ibarra Work Phone: [facility] Encounters Encounter Date Encounter Type Care Provider Facility Start: 07-19-2024 End: 07-19-2024 Emergency department patient visit Kodi Hughes Facility:[facility] Start: 10-09-2022 End: 10-09-2022 Emergency department patient visit MD Kavin Ibarra Work Phone: [facility] Start: 10-05-2021 End: 10-06-2021 ambulatory JORDAN Jasper RICHARDSON Facility: Start: 08-02-2019 End: 08-03-2019 Patient encounter procedure [facility] Start: 08-02-2019 End: 08-02-2019 Subsequent hospital visit by physician Kavin LEACHHZ Laboratory Start: 07-26-2019 End: 07-27-2019 Patient encounter procedure [facility] Start: 07-26-2019 End: 07-26-2019 Subsequent hospital visit by physician Kavin COLEMAN Laboratory Start: 07-19-2019 End: 07-20-2019 Patient encounter procedure [facility] Start: 07-19-2019 End: 07-19-2019 Subsequent hospital visit by physician Kavin COLEMAN Laboratory Start: 07-13-2019 End: 07-14-2019 Patient encounter procedure [facility] Start: 07-13-2019 End: 07-13-2019 Subsequent hospital visit by physician MARYJANE Laboratory Procedures Date Procedure Procedure Detail Performing Clinician Start: 10-09-2022 Plain chest X-ray MD Perez Work Phone: Start: 08-02-2019 Basic metabolic pane l calcium total SOLO ISAI Start: 08-02-2019 Blood count complete auto&auto difrntl wbc SOLO ISAI Start: 08-02-2019 C-reactive protein ANIT A ISAI Start: 08-02-2019 Sedimentation rate r bc automated SOLO ISAI Start: 08-02-2019 Basic metabolic pane l calcium total Solo Isai Work Phone: Start: 08-02-2019 Blood count complete auto&auto difrntl wbc Solo Isai Work Phone: Start: 08-02-2019 C-reactive protein Anit a Isai Work Phone: Start: 08-02-2019 Sedimentation rate r bc automated Solo Isai Work Phone: Start: 07-26-2019 Basic metabolic pane l calcium total SOLO ISAI Start: 07-26-2019 Blood count complete auto&auto difrntl wbc SOLO ISAI Start: 07-26-2019 C-reactive protein ANIT A ISAI Start: 07-26-2019 Sedimentation rate r bc automated SOLO ISAI Start: 07-26-2019 Basic metabolic pane l calcium total Kavin M Hoy Work Phone: Start: 07-26-2019 Blood count complete auto&auto difrntl wbc Kavin M Hoy Work Phone: Start: 07-26-2019 C-reactive protein Roger las M Hoy Work Phone: Start: 07-26-2019 Sedimentation rate r bc automated Kavin M Hoy Work Phone: Start: 07-19-2019 Basic metabolic pane l calcium total SOLO ISAI Start: 07-19-2019 Blood count complete auto&auto difrntl wbc SOLO ISAI Start: 07-19-2019 C-reactive protein ANIT A ISAI Start: 07-19-2019 Sedimentation rate r bc automated SOLO ISAI Start: 07-19-2019 Basic metabolic pane l calcium total Solo Isai Work Phone: Start: 07-19-2019 Blood count complete auto&auto difrntl wbc Solo Isai Work Phone: Start: 07-19-2019 C-reactive protein Anit a Isai Work Phone: Start: 07-19-2019 Sedimentation rate r bc automated Solo Isai Work Phone: Start: 07-13-2019 Basic metabolic pane l calcium total SOLO ISAI Start: 07-13-2019 Blood count complete auto&auto difrntl wbc SOLO ISAI Start: 07-13-2019 C-reactive protein ANIT A ISAI Start: 07-13-2019 Sedimentation rate r bc automated SOLO ISAI Start: 07-13-2019 Basic metabolic pane l calcium total Solo Isai Work Phone: Start: 07-13-2019 Blood count complete auto&auto difrntl wbc Solo Isai Work Phone: Start: 07-13-2019 C-reactive protein Anit a Isai Work Phone: Start: 07-13-2019 Sedimentation rate r bc automated Solo Isai Work Phone: Start: 07-06-2019 Antibody screen Comment on above: Performed By: #### T SCR #### [place] [id number] SARS-CoV-2, Influenz a & RSV (PCR) MD Kavin Ibarra Work Phone: Plan of Treatment Date Care Activity Detail Author Start: 07-11-2019 Influenza vaccination Flu vaccine (# 1) [place], [place] Start: 2018 Breast cancer screen Breast cancer s [place], [place] Patient Education Flu, Adult (DC) [facility] Work Phone: Patient referral [facility] Work Phone: Payers Date Payer Category Payer Unknown 2022 Self-pay [id number] 2014 Unknown [employer] [address] xxxxxxxxx 2014-Present [phone] [address] [place] [address] xxxxxxxxx [id number] 1968 Unknown [id number] 1968 Unknown [id number] 1968 Unknown [id number] 1968 Unknown [id number] 1968 Unknown [id number] 1968 Unknown [id number] 1959 Unknown [id number] Unknown [id number] Social History Date Type Detail Facility Tobacco smoking stat [facility] Unknown if ever smoked [place] Sex Assigned At Not on file [place] [employer] Start: 10-09-2022 Tobacco smoking stat [facility] Smoker (finding) [facility] Start: 1970 Sex Assigned At Female F [facility] Clinical Note 07-19-2024 Note Date & Type Note Facility 07-19-2024 Note ED Patient Education Note Orthopedics RICE Therapy for Routine Care of Injuries Many injuries can be cared for with rest, ice, compression, and elevation (RICE therapy). This includes: ? Resting the injured body part. ? Putting ice on the injury. ? Putting pressure (compression) on the injury. ? Raising the injured part (elevation). Using RICE therapy can help to lessen pain and swelling. Supplies needed: ? Ice. ? Plastic bag. ? Towel. ? Elastic bandage. ? Pillow or pillows to raise your injured body part. How to care for your injury with RICE therapy Rest Try to rest the injured part of your body. You can go back to your normal activities when your doctor says it is okay to do them and when you can do them without pain. If you rest the injury too much, it may not heal as well. Some injuries heal better with early movement instead of resting for too long. Ask your doctor if you should do exercises to help your injury get better. Ice ? If told, put ice on the injured area. To do this: ? Put ice in a plastic bag. ? Place a towel between your skin and the bag. ? Leave the ice on for 20 minutes, 2?3 times a day. ? Take off the ice if your skin turns bright red. This is very important. If you cannot feel pain, heat, or cold, you have a greater risk of damage to the area. ? Do not put ice on your bare skin. Use ice for as many days as your doctor tells you to use it. Compression Put pressure on the injured area. This can be done with an elastic bandage. If this type of bandage has been put on your injury: ? Follow instructions on the package the bandage came in about how to use it. ? Do not wrap the bandage too tightly. ? Wrap the bandage more loosely if part of your body beyond the bandage is blue, swollen, cold, painful, or loses feeling. ? Take off the bandage and put it on again every 3?4 hours or as told by your doctor. ? See your doctor if the bandage seems to make your problems worse. Elevation Raise the injured area above the level of your heart while you are sitting or lying down. Follow these instructions at home: ? If your symptoms get worse or last a long time, make a follow-up appointment with your doctor. You may need to have imaging tests, such as X-rays or an MRI. ? If you have imaging tests, ask how to get your results when they are ready. ? Return to your normal activities when your doctor says that it is safe. ? Keep all follow-up visits. Contact a doctor if: ? You keep having pain and swelling. ? Your symptoms get worse. Get help right away if: ? You have sudden, very bad pain at your injury or lower than your injury. ? You have redness or more swelling around your injury. ? You have tingling or numbness at your injury or lower than your injury, and it does not go away when you take off the bandage. Summary ? Many injuries can be cared for using rest, ice, compression, and elevation (RICE therapy). ? You can go back to your normal activities when your doctor says it is okay and when you can do them without pain. ? Put ice on the injured area as told by your doctor. ? Get help if your symptoms get worse or if you keep having pain and swelling. This information is not intended to replace advice given to you by your health care provider. Make sure you discuss any questions you have with your health care provider. Document Revised: 08/16/2021 Document Reviewed: 08/16/2021 [employer] Patient Education ? 2023 [employer] Musculoskeletal Pain Musculoskeletal pain refers to aches and pains in your bones, joints, muscles, and the tissues that surround them. This pain can occur in any part of the body. It can last for a short time (acute) or a long time (chronic). A physical exam, lab tests, and imaging studies may be done to find the cause of your musculoskeletal pain. Follow these instructions at home: Lifestyle ? Try to control or lower your stress levels. Stress increases muscle tension and can worsen musculoskeletal pain. It is important to recognize when you are anxious or stressed and learn ways to manage it. This may include: ? Meditation or yoga. ? Cognitive or behavioral therapy. ? Acupuncture or massage therapy. ? You may continue all activities unless the activities cause more pain. When the pain gets better, slowly resume your normal activities. Gradually increase the intensity and duration of your activities or exercise. Managing pain, stiffness, and swelling ? Treatment may include medicines for pain and inflammation that are taken by mouth or applied to the skin. Take [id number] and prescription medicines only as told by your health care provider. ? When your pain is severe, bed rest may be helpful. Lie or sit in any position that is comfortable, but get out of bed and walk around at least every couple (more content not included)... [facility] Evaluation note Note Date & Type Note Facility Evaluation note No assessment information availa [facility] Work Phone: Hospital Discharge instructions Note Date & Type Note Facility Hospital Discharge instructions Additional Instructions He tested positive for influenza A today. You should wear a mask when around other people and quarantine for the next 4 days Take Tamiflu twice per day for the next 5 days, use Tessalon Perles and Mucinex for your cough. Drink plenty of fluids and get plenty of rest. 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 Advance Directives and Living Will Power of Mold Filler [employer] Dolls Advance Directive Response Recorded Date/ Time Advance Directives No October 12, 2021 10:51pm Summary Purpose Family History No Family History Records FoundNo Family History Records FoundNo Family History Records FoundNo Family History Records FoundNo Family History Records FoundNo Family History Records FoundNo Family History Records Found Hospital Course Note HNO ID: [id number] Author: Sharon santana (Carla) Yadira Service: General Surgery Author Type: Resident Type: Discharge Summary Filed: 07/22/2019 10:43 PM Note Text: DISCHARGE SUMMARY ADMISSION DATE: 07/06/2019 DISCHARGE DATE: 07/09/2019 Attending Physician: Sunita Spivey Reason for Hospitalization: Intraabdominal abscess Final Diagnoses: ACTIVE PROBLEM LIST Postprocedural Intraabdominal Abscess Operations During Hospitalization: None Procedures During Hospitalization: IV Access Venipuncture Hospital Course: Nneka Arriaga is a 49 year old female with a h/o appendectomy 2 years ago who initially presented to OSH with abdominal pain on 07/06/2019. A CT Scan demonstrated RLQ abscess (6.1cm). Of note, she previously was seen in 06/28 for a RLQ abscess and underwent diag lap w/ washout of 1.5cm abscess. she was admitted to a regular nursing floor at the OSH after which she was treated with IV abx and transferred to [facility] for further care. IR was consulted but elected not to proceed with percu (more content not included)... Chief Complaint and Reason for Visit Chief Complaint passed out Additional Source Comments INFORMATION SOURCE (unrecogn ized section and content) DATE CREATED AUTHOR 07/23/2019 [facility] DATE CREATED AUTHOR AUTHOR'S ORGANIZ ATION 07/27/2019 [facility] DATE CREATED AUTHOR AUTHOR'S ORGANIZ ATION [facility] DATE CREATED AUTHOR AUTHOR'S ORGANIZ ATION 06/04/2020 [facility] DATE CREATED AUTHOR AUTHOR'S ORGANIZ ATION 10/08/2021 [facility] DATE CREATED AUTHOR AUTHOR'S ORGANIZ ATION 07/23/2024 [facility] DATE CREATED AUTHOR AUTHOR'S ORGANIZ ATION 08/01/2024 [facility] Care Teams (unrecognized sec tion and content) Team Status: Inactive Member Role Status Dates Kavin Ibarra MD Primary Care Provider Active Cuong Ireland DO Emergency Provider Active Team Status: Active Member Role Status Dates Kavin Ibarra MD Primary Care Provider Active Goals (unrecognized section and content) Goals may be documented in a n alternate section FOR RECORDS PERTAINING TO PATIENTS WHO ARE OR HAVE BEEN ENROLLED IN A CHEMICAL DEPENDENCY/SUBSTANCEABUSE PROGRAM, SOME INFORMATION MAY BE OMITTED. This clinical summary was aggregated from multiple sources. Caution should be exercised in using it in the provision of clinical care. This summary normalizes information from multiple sources, and as a consequence, information in this document may materially change the coding, format and clinical context of patient data. In addition, data may be omitted in some cases. CLINICAL DECISIONS SHOULD BE BASED ON THE PRIMARY CLINICAL RECORDS. [employer] provides no warranty or guarantee of the accuracy or completeness of information in this document.
[2024-08-24 11:32] LABS: Basophils Percent Auto 0.3 % (0.2-2.0); Eosinophils Absolute Auto 0.1 10^3/uL (0.0-0.7); Eosinophils Percent Auto 0.9 % (0.9-7.0); Hematocrit 40.3 % (36.0-48.0); Hemoglobin 14.4 g/dL (12.0-16.0); Immature Granulocytes Abs Auto 0.02 10^3/uL (0.00-0.03); Immature Granulocytes Pct Auto 0.3 % (0.0-0.5); Lymphocytes Absolute Auto 2.2 10^3/uL (1.2-3.8); Lymphocytes Percent Auto 32.2 % (20.5-60.0); Mean Corpuscular HGB Conc 35.7 g/dL (29.9-35.2); Mean Corpuscular Hemoglobin 29.6 pg (26.7-34.0); Mean Corpuscular Volume 82.9 fL (81.0-99.0); Mean Platelet Volume 9.1 fL (9.5-13.5); Monocytes Absolute Auto 0.5 10^3/uL (0.3-0.8); Monocytes Percent Auto 7.7 % (1.7-12.0); Neutrophils Percent Auto 58.6 % (43.0-75.0); Platelet Count 235 10^3/uL (150-450); Red Blood Count 4.86 10^6/uL (4.20-5.40); Red Cell Distribution Width 11.2 % (11.0-15.0); White Blood Count 6.8 10^3/uL (4.0-11.0)
[2024-08-24 12:39] LABS: Alanine Aminotransferase 19 U/L (14-59); Albumin Globulin Ratio 1.1; Albumin Level 4.3 g/dL (3.4-5.0); Alkaline Phosphatase 76 U/L (46-116); Anion Gap 12.6; Aspartate Amino Transferase 16 U/L (15-37); BUN Creatinine Ratio 23.4; Bilirubin Total 0.6 mg/dL (0.2-1.0); Calcium 9.9 mg/dL (8.5-10.1); Carbon Dioxide 29.8 mmol/L (21.0-32.0); Chloride 102 mmol/L (98-107); Estimated GFR (African America >60 (>=60 mL/min/1.73m^2); Estimated GFR (Non-African Ame >60 (>=60 mL/min/1.73m^2); Globulin 3.8 g/dL; Glucose 95 mg/dL (74-106); Potassium 3.4 mmol/L (3.5-5.1); Sodium 141 mmol/L (136-145); Total Protein 8.1 g/dL (6.4-8.2)
== END 2024-08-24 10:10 | disposition home or self-care (01) ==
PROVIDERS: PCP Family Medicine; Visit Provider Family Medicine
DX: R00.0 Tachycardia, unspecified (principal); D64.9 Anemia, unspecified
CPT/HCPCS: 36415; 80053; 85025; 93306